=== PATIENT | female | born 1950 | race Caucasian/White ===

== ENCOUNTER 2016-06-08 17:26 | Emergency (ER) | payer OTHER ==
[~2016-06-08] VITALS: Ht 162.6 cm; Wt 74.8 kg
[~2016-06-08 17:26] MED LIST: ACTOS; METFORMIN; [UNRECOGNIZED DRUG - OTHER]
[2016-06-08 19:34] VITALS: BP 124/87
== END 2016-06-08 20:04 | disposition home or self-care (01) ==
LOC: ER 17:29
DX: T83.018A Breakdown (mechanical) of other urinary catheter, initial encounter (principal); I10 Essential (primary) hypertension; E11.9 Type 2 diabetes mellitus without complications; Y93.89 Activity, other specified; Y99.9 Unspecified external cause status; Y92.89 Other specified places as the place of occurrence of the external cause; Z88.1 Allergy status to other antibiotic agents; Z79.899 Other long term (current) drug therapy

== ENCOUNTER → 2016-06-11 | Emergency (ER) | payer OTHER ==
[~2016-06-11] MED LIST changes: +BACL10TA; +HYDR50CA2; +IBU800T; +LISI-646; +LITH300C3; +METF-316; +OXYB5TAB61; +PIOG15TA46; +SIMV-8; +SITA100T7; +[UNRECOGNIZED DRUG - CODE]
== END | disposition left against medical advice (07) ==
LOC: ER 03:35
DX: Z46.6 Encounter for fitting and adjustment of urinary device (principal); Z53.21 Procedure and treatment not carried out due to patient leaving prior to being seen by health care provider

== ENCOUNTER 2016-06-14 08:27 | Emergency (ER) | payer OTHER ==
[~2016-06-14] VITALS: Ht 162.6 cm; Wt 77.1 kg
[~2016-06-14 08:27] MED LIST changes: -BACL10TA; -HYDR50CA2; -IBU800T; -LISI-646; -LITH300C3; -METF-316; -OXYB5TAB61; -PIOG15TA46; -SIMV-8; -SITA100T7; -[UNRECOGNIZED DRUG - CODE]
[2016-06-14 08:55] VITALS: BP 180/80
== END 2016-06-14 10:40 | disposition home or self-care (01) ==
LOC: ER 08:37
DX: T83.9XXD Unspecified complication of genitourinary prosthetic device, implant and graft, subsequent encounter (principal); Z45.2 Encounter for adjustment and management of vascular access device; E11.9 Type 2 diabetes mellitus without complications; I10 Essential (primary) hypertension; Z79.84 Long term (current) use of oral hypoglycemic drugs; Z88.1 Allergy status to other antibiotic agents; Z88.2 Allergy status to sulfonamides
CPT/HCPCS: 51702

== ENCOUNTER → 2016-06-16 | Outpatient (CLI) | payer OTHER | END | disposition home or self-care (01) | LOC: LAB 13:20 | PROVIDERS: ATTEND Internal Medicine | DX: N39.0 Urinary tract infection, site not specified (principal) | CPT/HCPCS: 87086 ==

== ENCOUNTER 2016-06-23 06:00 | Emergency (ER) | payer OTHER ==
[~2016-06-23] VITALS: Ht 162.6 cm; Wt 77.1 kg
[2016-06-23 06:25] VITALS: BP 157/80
[2016-06-23 06:50] LABS: Basophils # (auto) 0 uL; Basophils % (auto) 0.4 % (0.0-2.0); Eosinophils # (auto) 0.2 uL; Eosinophils % (auto) 3.3 % (0.0-7.0); Hemoglobin 12.9 g/dL (12.2-16.2); Lymphocytes # (auto) 1.7 uL; Lymphocytes % (auto) 32.9 % (10.0-50.0); Mean Corpuscular Hemoglobin 30.4 pg (28.0-32.0); Mean Corpuscular Hgb Conc. 32.3 g/dL (32.0-36.0); Mean Corpuscular Volume 94.2 fL (80.0-100.0); Mean Platelet Volume 7.6 fL (7.4-10.4); Monocytes # (auto) 0.4 uL; Monocytes % (auto) 7.2 % (0.0-12.0); Neutrophils # (auto) 2.8 uL; Neutrophils % (auto) 56.2 % (37.0-80.0); Platelet Count (auto) 235 10^3/uL (140-450); Red Cell Distribution Width 12.5 % (11.6-16.0)
[2016-06-23 07:10] LABS: Albumin 3.5 g/dL (3.4-5.0); Anion Gap 11 (5-15); Aspartate Aminotransferase 17 U/L (15-37); Blood Urea Nitrogen 8 mg/dL (7-18); Calcium 8.9 mg/dL (8.5-10.1); Carbon Dioxide 22 mmol/L (21-32); Chloride 109 mmol/L (98-107); GFR African American 92 mL/min; GFR Non-African American 76 mL/min; Glucose 223 mg/dL (74-106); Potassium 3.9 mmol/L (3.5-5.1); Salicylate < 1.7 mg/dL (2.8-20.0); Sodium 142 mmol/L (136-145)
[2016-06-23 07:21] LABS: Acetaminophen < 2.0 ug/mL (10-30); Alkaline Phosphatase 63 U/L (45-117); Bilirubin, Total 0.7 mg/dL (0.2-1.0); Total Protein 6.5 g/dL (6.4-8.2)
[2016-06-23 07:52] LABS: Urine Bilirubin Negative (Negative); Urine Blood Negative /uL (Negative); Urine Color Yellow (Yellow); Urine Glucose TRACE mg/dL (Normal); Urine Ketone Negative (Negative); Urine Nitrite Negative (Negative); Urine RBC <1 /hpf (0 - 4); Urine Urobilinogen Normal (Negative)
[2016-06-23] MEDS ORDERED: SODIUM CHLORIDE 0.9% 1,000 ML IV ONE (08:15)
[2016-06-23] MEDS ORDERED: HYDROcodone-ACET 5/325MG TAB PO ONE (08:15)
== END 2016-06-23 09:14 | disposition home or self-care (01) ==
LOC: ER 06:04
DX: T39.391A Poisoning by other nonsteroidal anti-inflammatory drugs [NSAID], accidental (unintentional), initial encounter (principal); E11.9 Type 2 diabetes mellitus without complications; I10 Essential (primary) hypertension; R33.9 Retention of urine, unspecified; Z79.84 Long term (current) use of oral hypoglycemic drugs; Z88.1 Allergy status to other antibiotic agents
CPT/HCPCS: 36415; 80053; 80329; 81001; 85025; 85049; 93005; 94761; 99285; G0434; J7030

== ENCOUNTER → 2016-07-03 | Outpatient (CLI) | payer OTHER | END | disposition home or self-care (01) | LOC: LAB 16:11 | PROVIDERS: ATTEND Urology | DX: N39.9 Disorder of urinary system, unspecified (principal); I10 Essential (primary) hypertension; E11.9 Type 2 diabetes mellitus without complications | CPT/HCPCS: 87086 ==

== ENCOUNTER 2016-10-03 11:22 | Emergency (ER) | payer OTHER ==
[~2016-10-03] VITALS: Ht 152.4 cm; Wt 74.8 kg
[~2016-10-03 11:22] MED LIST changes: -ACTOS; +BACL10TA; +HYDR50CA2; +IBU800T; +LISI-646; +LITH300C3; +METF-316; -METFORMIN; +OXYB5TAB61; +PIOG15TA46; +SIMV-8; +SITA100T7; +[UNRECOGNIZED DRUG - CODE]; -[UNRECOGNIZED DRUG - OTHER]
[2016-10-03 11:35] VITALS: BP 173/100
[2016-10-03] MEDS ORDERED: SODIUM CHLORIDE 0.9% 1,000 ML IV ONE (11:35)
[2016-10-03] MEDS ORDERED: ONDANSETRON HCL 4 MG/2 ML VIAL IV ONE (11:45)
[2016-10-03 12:21] LABS: Basophils # (auto) 0.1 uL; Basophils % (auto) 0.7 % (0.0-2.0); Eosinophils # (auto) 0.1 uL; Eosinophils % (auto) 1.3 % (0.0-7.0); Hematocrit 42.1 % (36.0-46.0); Hemoglobin 13.9 g/dL (12.2-16.2); Lymphocytes # (auto) 1.4 uL; Lymphocytes % (auto) 18.2 % (10.0-50.0); Mean Corpuscular Hemoglobin 30.6 pg (28.0-32.0); Mean Corpuscular Volume 92.8 fL (80.0-100.0); Monocytes # (auto) 0.5 uL; Monocytes % (auto) 6.2 % (0.0-12.0); Neutrophils # (auto) 5.6 uL; Neutrophils % (auto) 73.6 % (37.0-80.0); Platelet Count (auto) 343 10^3/uL (140-450); Red Cell Distribution Width 13.4 % (11.6-16.0); White Blood Cell 7.6 10^3/uL (4.4-10.8)
[2016-10-03 12:33] LABS: Albumin 4.1 g/dL (3.4-5.0); Alkaline Phosphatase 134 U/L (45-117); Amylase 119 U/L (25-115); Anion Gap 8 (5-15); Aspartate Aminotransferase 19 U/L (15-37); BUN/Creatinine Ratio 11.8; Blood Urea Nitrogen 16 mg/dL (7-18); Calcium 10.7 mg/dL (8.5-10.1); Carbon Dioxide 25 mmol/L (21-32); Chloride 100 mmol/L (98-107); GFR African American 50 mL/min; GFR Non-African American 41 mL/min; Glucose 214 mg/dL (74-106); Potassium 4.7 mmol/L (3.5-5.1); Sodium 133 mmol/L (136-145); Total Protein 7.7 g/dL (6.4-8.2)
== END 2016-10-03 18:48 | disposition home or self-care (01) ==
LOC: EDUNIT# 11:22 → EDBD 11:22 → ER 11:22
CPT/HCPCS: 36415; 71010; 80053; 82150; 83690; 84484; 85025

== ENCOUNTER 2016-11-10 01:53 | Emergency (ER) | payer OTHER ==
[~2016-11-10] VITALS: Ht 165.1 cm; Wt 68.0 kg
[~2016-11-10 01:53] MED LIST changes: -IBU800T; +IBUP800T24; -METF-316; +METF-372
[2016-11-10 02:12] VITALS: BP 136/66
== END 2016-11-10 04:54 | disposition left against medical advice (07) ==
LOC: ER 01:53
DX: Z46.6 Encounter for fitting and adjustment of urinary device (principal); Z53.21 Procedure and treatment not carried out due to patient leaving prior to being seen by health care provider

== ENCOUNTER 2024-08-31 14:12 | Emergency (ER) | payer OTHER ==
[~2024-08-31] VITALS: Ht 162.6 cm; Wt 65.0 kg
[~2024-08-31 14:12] MED LIST changes: +ACET500T48; +IBUP-1455; -IBUP800T24; -LISI-646; +LISI20TA56; +OXYB5TAB14; -OXYB5TAB61; -PIOG15TA46; +PIOG1TAB36; -SIMV-8; +SIMV20TA20; -[UNRECOGNIZED DRUG - CODE]
--- NOTE | 2024-08-31 14:27 | ED.PDOC ---
History of Present Illness HPI Comments 73-year-old female brought by ambulance from crisis Center because she was behaving abnormal. She does have a history of behavior problems diabetes dementia. Unable to get a history from the patient. She is confused. Information was given by paramedics. She did drive to crisis Center to get he lp. Time Seen by MD: 14:20 Primary Care Provider: BRE Reviewed Notes: Nurses Notes, Medications, Allergies Allergies: Coded Allergies: Sulfa Antibiotics (Verified Allergy, Unknown, 06/02/16) Home Meds Reported Medications [place] Carbonate ([place] Carbonate) 300 Mg Cap, #270 07/18/16 Sitagliptin Phosphate (Januvia) 100 Mg Tab, #30 07/18/16 Oxybutynin Chloride (Oxybutynin Chloride) 5 Mg Tab, #90 07/18/16 Simvastatin (Simvastatin) 20 Mg Tab, #90 07/18/16 Metformin Hydrochloride (Metformin Hcl) 1,000 Mg Tab, #180 07/18/16 Pioglitazone Hydrochloride (PIOGLITAZONE HCL) 15 Mg Tab, #90 07/18/16 Hydroxyzine Pamoate (Hydroxyzine Pamoate) 50 Mg Cap, #30 07/18/16 Baclofen (Baclofen) 10 Mg Tab, #30 07/18/16 Acetaminophen (Mapap) 500 Mg Tab, #120 07/18/16 Lisinopril (Lisinopril) 20 Mg Tab, #30 07/18/16 Ibuprofen Micronized (Ibuprofen) 800 Mg Tab, #20 07/18/16 Information Source: Emergency Med Personnel Mode of Arrival: EMS Severity: Moderate Timing: Hours Duration: Since onset Past Medical History PAST MEDICAL HISTORY: Anxiety, DM, HTN Surgical History: Denies all surgeries LINER ROLL CHANGER History: No Pertinent LINER ROLL CHANGER History Family History Family History: No family hx of Cancer, No family hx of DM, No family hx of Heart mila, No family hx of HTN, No family hx of Stroke Social History Smoker: Non-Smoker Alcohol: Denies ETOH Use Drugs: Denies Drug Use Lives In: Home Unable to Obtain due to: Altered Mental Status Physical Exam General Appearance: Moderate Distress HEENT: Normal ENT Inspection, Pharynx Normal, TMs Normal Neck: Full Range of Motion, Non-Tender, Normal, Normal Inspection Respiratory: Chest Non-Tender, Lungs Clear, No Accessory Muscle Use, No Respiratory Distress, Normal Breath Sounds Cardiovascular: No Edema, No JVD, No Murmur, No Gallop, Normal Peripheral Pulses, Regular Rate/Rhythm Breast Exam: Deferred Gastrointestinal: No Organomegaly, Non Tender, No Pulsatile Mass, Normal Bowel Sounds, Soft Genitalia: Deferred Pelvic: Deferred Rectal: Deferred Extremities: No calf tenderness, Normal capillary refill, Normal inspection, Normal range of motion, Non-tender, No pedal edema Musculoskeletal : Apperance: Normal Neurologic: Disoriented Cerebellar Function: NOT DONE Reflexes: NOT DONE Skin: Normal Color Peripheral Pulses: 3+ Radial (R), 3+ Radial (L) Lymphatic: No Adenopathy Was a procedure done? Was a procedure done?: No Differential Dx Considerations may include: Altered Electrolyte imbalance X-Ray, Labs, Meds, VS Vital Signs Date Time Temp Pulse Resp B/P (MAP) Pulse Ox O2 Delivery O2 Flow Rate FiO2 08/31/24 14:25 77 08/31/24 14:12 99.2 80 18 155/87 (109) 98 99.2 Lab Test 08/31/24 15:27 08/31/24 14:55 Range/Units Urine Color Pending Urine Clarity Pending Urine pH Pending Urine Specific [place] Pending Urine Protein Pending Urine Ketones Pending Urine Blood Pending Urine Nitrite Pending Urine Bilirubin Pending Urine Urobilinogen Pending Urine Leukocyte Esterase Pending Urine RBC Pending Urine Microscopic WBC Pending Urine Squamous Epithelial Cells Pending Urine Bacteria Pending Urine Glucose Pending White Blood Count 5.6 4.4-10.8 10^3/uL Red Blood Count 4.06 4.0-5.20 10^6/uL Hemoglobin 12.0 L 12.2-16.2 g/dL Hematocrit 37.8 36.0-46.0 % Mean Corpuscular Volume 93.1 80.0-100.0 fL Mean Corpuscular Hemoglobin 29.5 28.0-32.0 pg Mean Corpuscular Hemoglobin Concent 31.7 L 32.0-36.0 g/dL Red Cell Distribution Width 14.4 H 11.8-14.3 % Platelet Count 252 140-450 10^3/uL Mean Platelet Volume 7.0 6.9-10.8 fL Neutrophils (%) (Auto) 58.6 37.0-80.0 % Lymphocytes (%) (Auto) 28.6 10.0-50.0 % Monocytes (%) (Auto) 10.6 0.0-12.0 % Eosinophils (%) (Auto) 1.2 0.0-7.0 % Basophils (%) (Auto) 1.0 0.0-2.0 % Neutrophils # (Auto) 3.3 1.6-8.6 10 ^3/uL Lymphocytes # (Auto) 1.6 0.4-5.4 10 ^3/uL Monocytes # (Auto) 0.6 0-1.3 10 ^3/uL Eosinophils # (Auto) 0.1 0-0.8 10 ^3/uL Basophils # (Auto) 0.1 0-0.2 10 ^3/uL Nucleated Red Blood Cells 0.1 % Sodium Level 138 136-145 mmol/L Potassium Level 4.3 3.5-5.1 mmol/L Chloride Level 103 98-107 mmol/L Carbon Dioxide Level 25 20-31 mmol/L Anion Gap 10 5-15 Blood Urea Nitrogen 27 H 9-23 mg/dL Creatinine 1.08 H 0.550-1.02 mg/dL Glomerular Filtration Rate Calc 54 >90 mL/min BUN/Creatinine Ratio 25.0 H 10.0-20.0 Serum Glucose 125 H 74-106 mg/dL Calcium Level 11.0 H 8.7-10.4 mg/dL Troponin I High Sensitivity 13 </=34 ng/L Patient disoriented. Has behavioral disturbances. Possible dementia. Vitals stable. No sign of any injury. Possible sepsis from urine. Urinary tract infection causing worsening of her altered mental status. Reviewed her history. Continue cardiac monitoring. EKG reviewed does not show any acute changes. Time of 1ST Reevaluation: 14:52 Reevaluation 1ST: Unchanged Patient Education/Counseling: Diagnosis, Treatment, Prognosis Family Education/Counseling: No Family Present Departure 1 Departure Time of Disposition: 14:53 Impression: Primary Impression: Metabolic encephalopathy Additional Impression: HTN (hypertension) Qualified Codes: I10 - Essential (primary) hypertension Disposition: ADMITTED INPATIENT Admit to: Med Surg Condition: Guarded Critical Care Note Critical Care Time?: No Stability Stability form required: No Heart Score Heart Score: Heart Score Response (Comments) Value History Slightly Suspicious 0 EKG Normal 0 Age >65 2 Risk Factors >3 or Hx ASHD 2 Troponin Normal limit 0 Total 4 TITA PARKER MD Aug 31, 2024 14:27
--- NOTE | 2024-08-31 14:57 | DVH ---
EXAM: CT HEAD WITHOUT CONTRAST HISTORY: altered COMPARISON: None TECHNIQUE: Axial images were obtained and reformatted in coronal and sagittal planes. All CT scans at this medical facility are performed using dose modulation techniques as appropriate t o a performed exam including the following: Automated exposure control was utilized; adjustment of th e MA and/or KV according to patient size; and use of iterative reconstruction technique. CT Dose: CTDI volume is 54.16 mGy. Dose-length product is 959.05 mGy*cm FINDINGS: Supratentorial Region: No evidence for large acute territorial ischemia. No intracranial hemorrhage is noted. Posterior Fossa: No acute abnormality. Brainstem: Unremarkable. Sellar/Suprasellar Region: Unremarkable. Ventricles, Cisterns, Sulci: Age-appropriate. Orbits: Unremarkable. Paranasal Sinuses: Unremarkable. Mastoid Air Cells: Unremarkable. Vasculature: Unremarkable. Bones/Soft Tissues: No acute abnormality. Other: None. IMPRESSION: 1. No acute intracranial process.
[2024-08-31 15:14] LABS: Basophils # (auto) 0.1 10 ^3/uL (0-0.2); Eosinophils # (auto) 0.1 10 ^3/uL (0-0.8); Eosinophils % (auto) 1.2 % (0.0-7.0); Hematocrit 37.8 % (36.0-46.0); Lymphocytes # (auto) 1.6 10 ^3/uL (0.4-5.4); Lymphocytes % (auto) 28.6 % (10.0-50.0); Mean Corpuscular Hemoglobin 29.5 pg (28.0-32.0); Mean Corpuscular Hgb Conc. 31.7 g/dL (32.0-36.0); Mean Corpuscular Volume 93.1 fL (80.0-100.0); Monocytes # (auto) 0.6 10 ^3/uL (0-1.3); Monocytes % (auto) 10.6 % (0.0-12.0); Neutrophils # (auto) 3.3 10 ^3/uL (1.6-8.6); Neutrophils % (auto) 58.6 % (37.0-80.0); Nucleated Red Blood Cells % 0.1 %; Platelet Count (auto) 252 10^3/uL (140-450); Red Blood Cells 4.06 10^6/uL (4.0-5.20); Red Cell Distribution Width 14.4 % (11.8-14.3); White Blood Cell 5.6 10^3/uL (4.4-10.8)
[2024-08-31 15:24] LABS: Chloride 103 mmol/L (98-107); Potassium 4.3 mmol/L (3.5-5.1); Sodium 138 mmol/L (136-145)
[2024-08-31 15:25] LABS: Anion Gap 10 (5-15); Carbon Dioxide 25 mmol/L (20-31)
[2024-08-31 15:38] LABS: Blood Urea Nitrogen 27 mg/dL (9-23); Glucose 125 mg/dL (74-106)
[2024-08-31 15:38] LABS: Urine Bacteria None Seen /hpf (None Seen)
[2024-08-31 15:45] LABS: Urine Blood Negative /uL (Negative); Urine Clarity Clear (Clear); Urine Color Colorless (Yellow); Urine Protein, UAD Negative (Negative); Urine Specific Gravity 1.005 (1.001-1.035); Urine Squamous Epithelial Cell FEW /hpf (<5); Urine Urobilinogen Normal (Negative); Urine WBC 1 /HPF (0-5)
[2024-08-31 19:47] LABS: Acetaminophen < 2.0 UG/ML (10.0-20.0); Salicylate < 3.0 mg/dL (-30)
[2024-08-31 20:05] VITALS: PULSE 79; RESP 13; O2SAT 100
[2024-08-31 20:10] LABS: Amphetamine Screen, Urine Neg (NEGATIVE); Barbiturate Scree,Urine Neg (NEGATIVE); Benzodiazephine Screen, Urine Neg (NEGATIVE); Cannabinoid Screen, Urine Neg (NEGATIVE); Cocaine Screen, Urine Neg (NEGATIVE); Opiate Scree,Urine Neg (NEGATIVE); Phencyclidine Screen, Urine Neg (NEGATIVE)
--- NOTE | 2024-08-31 20:43 | DVH ---
CHEST RADIOGRAPH Indication: cough Technique: Single frontal view of the chest was obtained COMPARISON: None FINDINGS: Lines and Tubes: None Lungs: Clear Pleura: No effusion. No pneumothorax. Cardiomediastinal contours: Unremarkable Bones: Unremarkable IMPRESSION: No acute abnormality demonstrated.
[2024-08-31 23:03] VITALS: BP 123/75; PULSE 74; RESP 15; TEMP 97.8; O2SAT 97
--- NOTE | 2024-09-01 09:10 | ECG ---
[facility] Test Date: 2024-08-31 Test Time: 14:25:39 Pat Name: SAM MCNULTY Department: ED Room: Gender: F Client Reporting Associate: tyrone : [id number] Requested By: TITA PARKER Order Number: [id number] Reading MD: Ever Jacobsen Measurements Intervals [place] Rate: 77 P: 31 [place]: 205 QRS: -52 QRSD: 107 T: 88 QT: 393 QTc: 445 Interpretive Statements Sinus rhythm Left anterior fascicular block Probable left ventricular hypertrophy Anterior Q waves, possibly due to LVH Electronically Signed On 09-01-2024 14:11:11 PDT by Ever Jacobsen Please click the below link to view image of tracing.
== END 2024-08-31 23:49 | disposition short-term general hospital (02) ==
LOC: EDUNIT# 14:12 → EDBD 14:12 → ER 14:23
DX: G93.41 Metabolic encephalopathy (principal); I10 Essential (primary) hypertension; F41.9 Anxiety disorder, unspecified; E11.9 Type 2 diabetes mellitus without complications; F03.94 Unspecified dementia, unspecified severity, with anxiety; Z88.2 Allergy status to sulfonamides; Z79.899 Other long term (current) drug therapy
CPT/HCPCS: 36415; 70450; 71045; 80048; 80307; 80320; 80329; 81001; 82140; 82947; 84484; 85025; 93005

== ENCOUNTER 2025-05-10 08:48 | Inpatient (IN) | payer OTHER ==
[~2025-05-10] VITALS: Ht 157.5 cm; Wt 59.3 kg
[2025-05-10 09:56] VITALS: PULSE 67; RESP 13; O2SAT 99
--- NOTE | 2025-05-10 10:00 | ED.PDOC ---
Psychiatric HPI Comments 74-year-old female with PMHx of type 2 diabetes mellitus, previous MA has come to the ER via EMS for nonspecific complaints and paranoia. According to EMS, patient called them complaining of presyncope, history of frequent falls and slight chest pain. EMS reports that patient was pacing outside her house when they arrived, had locked the doors of her home, made no sense when she spoke, seemed paranoid (unable to know if this is her baseline) speaking mostly about babies being killed and stolen. Blood sugar level in the ambulance was 206, heart rate 80s, BP 141/102 mmHg and EKG showed normal sinus rhythm. Patient on initial assessment, is A&O x2, has rapid speech, mostly talks about babies being stolen, killed, 500 dollars being given, regarding some female trying to steal her home and patient pulled out her master's degree certification that she had stuffed in her socks, which she states she carries around as people are trying to steal it. On inquiry about where her chest pain is located, patient points to her abdomen and states 'there might be pain there because I have 6 belly buttons.' Patient is severely paranoid and requires tele psych consultation. Chief Complaint: General Weakness Time Seen by MD: 09:15 Primary Care Provider: BRE Information Source: Emergency Med Personnel Mode of Arrival: EMS Severity: Unable to Care for Self, Unable to Control Self Severity of Mental Status: Severe Presents with: Other (Paranoia) Past Medical History PAST MEDICAL HISTORY: Anxiety, DM, HTN Surgical History: Denies all surgeries SHELLFISH GROWER History: No Pertinent SHELLFISH GROWER History Family History Family History: No family hx of Cancer, No family hx of DM, No family hx of Heart mila, No family hx of HTN, No family hx of Stroke Social History Smoker: Non-Smoker Alcohol: Denies ETOH Use Drugs: Denies Drug Use Lives In: Home Unable to Obtain due to: Altered Mental Status, Other (Patient has paranoia, does not make sense in what she says) Physical Exam General Appearance: Normal HEENT: Other (No pallor or icterus) Neck: Non-Tender, Normal, Normal Inspection Respiratory: No Accessory Muscle Use, No Respiratory Distress, Normal Breath Sounds Cardiovascular: No Edema, No JVD, No Murmur Breast Exam: Deferred Gastrointestinal: Non Tender, Normal Bowel Sounds Genitalia: Deferred Pelvic: Deferred Rectal: Deferred Extremities: No calf tenderness, Non-tender, No pedal edema Neurologic: Other (Patient has rapid speech, no sensory motor deficits, does not make sense in what she says) Cerebellar Function: Unable to Test Reflexes: Normal Skin: Normal Color Lymphatic: Other (No cervical lymphadenopathy) Was a procedure done? Was a procedure done?: No Psych Differential Dx Psych. Differential Dx: Bipolar Disorder, Schizoprenia X-Ray, Labs, Meds, VS Vital Signs Date Time Temp Pulse Resp B/P (MAP) Pulse Ox O2 Delivery O2 Flow Rate FiO2 05/10/25 13:01 113 15 146/84 (104) 93 05/10/25 11:35 151/131 05/10/25 11:00 16 98 Room Air* 0 21 05/10/25 10:09 70 18 196/126 (149) 100 05/10/25 09:56 67 13 99 Room Air* 0 21 05/10/25 09:05 70 05/10/25 08:53 97.8 63 18 143/104 98 97.8 Lab Test 05/10/25 11:23 05/10/25 09:55 05/10/25 09:26 Range/Units POC Glucose 86 70-106 mg/dl Urine Color Light-yellow Yellow Urine Clarity Clear Clear Urine pH 5.5 5.0-9.0 Urine Specific [place] 1.017 1.001-1.035 Urine Protein Negative Negative Urine Ketones Negative Negative Urine Blood Negative Negative /uL Urine Nitrite Negative Negative Urine Bilirubin Negative Negative Urine Urobilinogen Normal Negative mg/dL Urine Leukocyte Esterase Trace Negative /uL Urine RBC 1 0 - 4 /hpf Urine Microscopic WBC 2 0-5 /HPF Urine Squamous Epithelial Cells Few <5 /hpf Urine Bacteria None seen None Seen /hpf Urine Osmolality Pending Urine Creatinine Pending Urine Protein/Creatinine Ratio Pending Urine Sodium Pending Urine Potassium Pending Urine Glucose Normal Normal mg/dL Urine Total Protein Pending Urine Opiates Screen Neg NEGATIVE Urine Fentanyl Screen Neg NEGATIVE Urine Barbiturates Screen Neg NEGATIVE Urine Phencyclidine Screen Neg NEGATIVE Urine Amphetamines Screen Neg NEGATIVE Urine Benzodiazepines Screen Neg NEGATIVE Urine Cocaine Screen Neg NEGATIVE Urine Cannabinoids Screen Neg NEGATIVE White Blood Count 6.2 4.4-10.8 10^3/uL Red Blood Count 4.04 4.0-5.20 10^6/uL Hemoglobin 12.7 12.2-16.2 g/dL Hematocrit 38.6 36.0-46.0 % Mean Corpuscular Volume 95.6 80.0-100.0 fL Mean Corpuscular Hemoglobin 31.5 28.0-32.0 pg Mean Corpuscular Hemoglobin Concent 32.9 32.0-36.0 g/dL Red Cell Distribution Width 13.1 11.8-14.3 % Platelet Count 241 140-450 10^3/uL Mean Platelet Volume 7.3 6.9-10.8 fL Neutrophils (%) (Auto) 78.6 37.0-80.0 % Lymphocytes (%) (Auto) 12.2 10.0-50.0 % Monocytes (%) (Auto) 7.4 0.0-12.0 % Eosinophils (%) (Auto) 1.2 0.0-7.0 % Basophils (%) (Auto) 0.6 0.0-2.0 % Neutrophils # (Auto) 4.8 1.6-8.6 10 ^3/uL Lymphocytes # (Auto) 0.8 0.4-5.4 10 ^3/uL Monocytes # (Auto) 0.5 0-1.3 10 ^3/uL Eosinophils # (Auto) 0.1 0-0.8 10 ^3/uL Basophils # (Auto) 0 0-0.2 10 ^3/uL Nucleated Red Blood Cells 0.0 % Sodium Level 140 136-145 mmol/L Potassium Level 5.5 H 3.5-5.1 mmol/L Chloride Level 105 98-107 mmol/L Carbon Dioxide Level 24 20-31 mmol/L Anion Gap 11 5-15 Blood Urea Nitrogen 21 9-23 mg/dL Creatinine 0.88 0.550-1.02 mg/dL Glomerular Filtration Rate Calc 68 >90 mL/min BUN/Creatinine Ratio 23.9 H 10.0-20.0 Serum Glucose 145 H 74-106 mg/dL Calcium Level 10.5 H 8.7-10.4 mg/dL Creatine Kinase 199 H 34-145 U/L Current Medications Medications (Trade) Dose Ordered Sig/Heena Route Start Time Stop Time Status Last Admin Albuterol (Ventolin Medneb) 20 mg ONCE ONCE NEB 05/10/25 10:30 05/10/25 10:32 DC 05/10/25 11:07 Sodium Bicarbonate 50 ml ONCE ONCE IV 05/10/25 10:30 05/10/25 10:33 DC 05/10/25 11:35 Furosemide (Lasix Injection) 20 mg ONCE ONCE IV 05/10/25 10:30 05/10/25 10:33 DC 05/10/25 11:35 Zirconium Oxide (Lokelma) 10 gm ONCE ONCE PO 05/10/25 10:30 05/10/25 10:32 DC 05/10/25 11:35 Patient slightly confused. Chronic condition. Blood sugar elevated. Calcium elevated. Potassium elevated. Kidney function within normal limits. WBC within normal limits. Hemoglobin within normal limits. Hyperkalemia treatment. Continue monitoring. Patient is unstable for transfer. [facility] approved inpatient admission [id number]. Time of 1ST Reevaluation: 10:29 Reevaluation 1ST: Unchanged Consultation: Psychiatry Patient Education/Counseling: Diagnosis, Treatment Family Education/Counseling: No Family Present Departure 1 Departure Time of Disposition: 10:29 Impression: Primary Impression: Metabolic encephalopathy Additional Impression: Hyperkalemia Disposition: ADMITTED INPATIENT Admit to: Med Surg Condition: Guarded Critical Care Note Critical Care Time?: Yes (90 min-critical care time only) Stability Stability form required: No Heart Score Heart Score: Heart Score Response (Comments) Value History N/A 0 EKG N/A 0 Age N/A 0 Risk Factors N/A 0 Troponin N/A 0 Total 0 RUEL WILKERSON May 10, 2025 10:00 TITA PARKER MD May 10, 2025 10:30
[2025-05-10 10:02] LABS: Hematocrit 38.6 % (36.0-46.0); Hemoglobin 12.7 g/dL (12.2-16.2); Mean Corpuscular Hemoglobin 31.5 pg (28.0-32.0); Mean Corpuscular Volume 95.6 fL (80.0-100.0); Nucleated Red Blood Cells % 0.0 %
[2025-05-10 10:14] LABS: Anion Gap 11 (5-15); Carbon Dioxide 24 mmol/L (20-31); Chloride 105 mmol/L (98-107); Potassium 5.5 mmol/L (3.5-5.1); Sodium 140 mmol/L (136-145)
[2025-05-10 10:16] LABS: Calcium 10.5 mg/dL (8.7-10.4)
[2025-05-10 10:20] LABS: BUN/Creatinine Ratio 23.9 (10.0-20.0); Blood Urea Nitrogen 21 mg/dL (9-23)
[2025-05-10 10:22] LABS: Glucose 145 mg/dL (74-106)
[2025-05-10 10:23] LABS: Urine Protein, UAD Negative (Negative)
[2025-05-10] MEDS ORDERED: CALCIUM GLUC 1,000mg/50ml-NS 50 ML IV ONE (10:30)
[2025-05-10 10:32] LABS: Amphetamine Screen, Urine Neg (NEGATIVE); Barbiturate Scree,Urine Neg (NEGATIVE); Benzodiazephine Screen, Urine Neg (NEGATIVE); Cannabinoid Screen, Urine Neg (NEGATIVE); Cocaine Screen, Urine Neg (NEGATIVE); Opiate Scree,Urine Neg (NEGATIVE); Phencyclidine Screen, Urine Neg (NEGATIVE)
[2025-05-10] MEDS: ALBUTEROL SULF 2.5 MG/0.5ML(0.5%) NEB SOLN NEB ONE (11:07)
--- NOTE | 2025-05-10 11:19 | ECG ---
[facility] Test Date: 2025-05-10 Test Time: 09:01:50 Pat Name: SAM MCNULTY Department: ED Room: 0221T Gender: F Vegetable Picker: LAILA : [id number] Requested By: TITA PARKER Order Number: [id number] Reading MD: Ever Jacobsen Measurements Intervals [place] Rate: 70 P: 0 AL: 0 QRS: -66 QRSD: 95 T: 70 QT: 397 QTc: 429 Interpretive Statements Atrial fibrillation Left anterior fascicular block Anterior infarct, old Borderline ST elevation, lateral leads Electronically Signed On 05-11-2025 17:04:27 PST by Ever Jacobsen Please click the below link to view image of tracing.
[2025-05-10] MEDS: SODIUM ZIRCONIUM CYCL 10 GM PAK PO ONE (11:35)
[2025-05-10] MEDS: SODIUM BICARB 8.4% 50Meq/50ml SYR INJ IV ONE (11:35)
[2025-05-10] MEDS: FUROSEMIDE 20 MG/2 ML VIAL IV ONE (11:35)
[2025-05-10] MEDS: DEXTROSE (50%) 50ML SYRG IV ONE (11:54)
[2025-05-10] MEDS: InsuLIN REG 1unit/0.01ml Soln (100units/ml) IV ONE (11:54)
--- NOTE | 2025-05-10 13:56 | DVHHP2 ---
History of Present Illness Reason for Visit: Metabolic encephalopathy History of Present Illness The patient is a 74 years old female with past medical history of anxiety, diabetes mellitus, hypertension, and hyperlipidemia who presented to [facility] ED for evaluation of altered mental status. As reported by EMS, patient called complaining of presyncopal episode, frequent falls, and slight chest pain. When EMS arrived on the scene, patient was pacing outside her house, locked the doors of her home with poor insight, thought process, hopelessness, paranoid, severe anxiety, and speaking mostly about babies being killed and stolen. Patient has rapid speech, talking about some female trying to steal her home, pulled out her master's degrees that stuffed in her socks, states she carries around as people are trying to steal it. Patient was stabilized by EMS EN route to our facility ED. Patient was seen and evaluated in the ED, laboratory data shows WBC 6.2, platelets 241, sodium 140, potassium 5.5, BUN 21, creatinine 0.88, GFR 68, glucose 145, calcium 10.5, blood pressure 196/126 trending down to 146/84, heart rate 70, temperature 97.8 F, O2 saturation 98% on room air. Patient was given hyperkalemia protocol, please see medication orders section in the computer. On my assessment, sitter at bedside, patient denied chest pain, no headache, dizziness, diaphoresis, shortness a breath, no diarrhea, nausea, vomiting, fever, no chills. Patient was admitted for further evaluation and medical management. Past Medical History Anxiety, DM, HTN, HLD Past Surgical History Denies all surgeries Family History Reviewed, noncontributory to the management of this case. Past Social History The patient lives at home, denies smoking, alcohol or illicit drugs abuse. Review of Systems Constitutional: Yes: Weakness; No: Fever, Chills, Sweats, Malaise, Other Eyes: No: Pain, Vision change, Conjunctivae inflammation, Eyelid inflammation, Other, Redness ENT: No: Ear pain, Ear discharge, Nose pain, Nose discharge, Nose congestion, Mouth pain, Mouth swelling, Throat pain, Throat swelling, Other Respiratory: No: Cough, Dry, Shortness of breath, SOB with excertion, Wheezing, Hemoptysis, Pleuritic Pain, Sputum, Wheezing, Other Cardiovascular: No: Chest Pain, Palpitations, Orthopnea, Paroxysmal Noc. Dyspnea, Edema, Lt Headedness, Other Gastrointestinal: No: Nausea, Vomiting, Abdominal Pain, Diarrhea, Constipation, Melena, Hematochezia, Other Genitourinary: No Dysuria, No Frequency, No Incontinence, No Hematuria, No Retention, No Other Musculoskeletal: No: other, neck pain, shoulder pain, arm pain, back pain, hand pain, leg pain, foot pain Skin: No: Rash, Lesions, Jaundice, Bruising, Other Neurological: Confusion, Other (Altered mental status); No: Weakness, Numbness, Incoordination, Change in speech, Seizures Allergies: Coded Allergies: Sulfa Antibiotics (Verified Allergy, Unknown, 06/02/16) Medications Current Medications Medications Dose Ordered Sig/Heena Route Start Time Stop Time Status Last Admin Dose Admin Amlodipine Besylate 5 mg DAILY PO 05/11/25 10:00 UNV Exam Vital Signs Vital Signs Date Time Temp Pulse Resp B/P (MAP) Pulse Ox O2 Delivery O2 Flow Rate FiO2 05/10/25 13:01 113 15 146/84 (104) 93 05/10/25 11:00 Room Air* 0 21 05/10/25 08:53 97.8 97.8 General Appearance: Alert, Cooperative, No acute distress, Other (Oriented x2) HEENT: Atraumatic, PERRLA, EOMI, Mucous membr. moist/pink Respiratory: Normal air movement Cardiovascular: Regular rate, Normal S1, Normal S2, No murmurs Abdominal: Normal bowel sounds, Soft, No tenderness, No hepatospenomegaly, No masses Extremities: No clubbing, No cyanosis, No edema, Normal pulses, No tenderness/swelling Skin: No rashes, No significant lesion Neuro: Normal tone, Sensation intact, Cranial nerves 3-12 NL, Reflexes 2+, Other (Generalized weakness) Psych/Mental Status: Mental status NL, Mood NL Labs/Xrays Labs Test 05/10/25 11:23 05/10/25 09:55 05/10/25 09:26 Range/Units POC Glucose 86 70-106 mg/dl Urine Color Light-yellow Yellow Urine Clarity Clear Clear Urine pH 5.5 5.0-9.0 Urine Specific [place] 1.017 1.001-1.035 Urine Protein Negative Negative Urine Ketones Negative Negative Urine Blood Negative Negative /uL Urine Nitrite Negative Negative Urine Bilirubin Negative Negative Urine Urobilinogen Normal Negative mg/dL Urine Leukocyte Esterase Trace Negative /uL Urine RBC 1 0 - 4 /hpf Urine Microscopic WBC 2 0-5 /HPF Urine Squamous Epithelial Cells Few <5 /hpf Urine Bacteria None seen None Seen /hpf Urine Glucose Normal Normal mg/dL Urine Opiates Screen Neg NEGATIVE Urine Fentanyl Screen Neg NEGATIVE Urine Barbiturates Screen Neg NEGATIVE Urine Phencyclidine Screen Neg NEGATIVE Urine Amphetamines Screen Neg NEGATIVE Urine Benzodiazepines Screen Neg NEGATIVE Urine Cocaine Screen Neg NEGATIVE Urine Cannabinoids Screen Neg NEGATIVE White Blood Count 6.2 4.4-10.8 10^3/uL Red Blood Count 4.04 4.0-5.20 10^6/uL Hemoglobin 12.7 12.2-16.2 g/dL Hematocrit 38.6 36.0-46.0 % Mean Corpuscular Volume 95.6 80.0-100.0 fL Mean Corpuscular Hemoglobin 31.5 28.0-32.0 pg Mean Corpuscular Hemoglobin Concent 32.9 32.0-36.0 g/dL Red Cell Distribution Width 13.1 11.8-14.3 % Platelet Count 241 140-450 10^3/uL Mean Platelet Volume 7.3 6.9-10.8 fL Neutrophils (%) (Auto) 78.6 37.0-80.0 % Lymphocytes (%) (Auto) 12.2 10.0-50.0 % Monocytes (%) (Auto) 7.4 0.0-12.0 % Eosinophils (%) (Auto) 1.2 0.0-7.0 % Basophils (%) (Auto) 0.6 0.0-2.0 % Neutrophils # (Auto) 4.8 1.6-8.6 10 ^3/uL Lymphocytes # (Auto) 0.8 0.4-5.4 10 ^3/uL Monocytes # (Auto) 0.5 0-1.3 10 ^3/uL Eosinophils # (Auto) 0.1 0-0.8 10 ^3/uL Basophils # (Auto) 0 0-0.2 10 ^3/uL Nucleated Red Blood Cells 0.0 % Sodium Level 140 136-145 mmol/L Potassium Level 5.5 H 3.5-5.1 mmol/L Chloride Level 105 98-107 mmol/L Carbon Dioxide Level 24 20-31 mmol/L Anion Gap 11 5-15 Blood Urea Nitrogen 21 9-23 mg/dL Creatinine 0.88 0.550-1.02 mg/dL Glomerular Filtration Rate Calc 68 >90 mL/min BUN/Creatinine Ratio 23.9 H 10.0-20.0 Serum Glucose 145 H 74-106 mg/dL Calcium Level 10.5 H 8.7-10.4 mg/dL SEPSIS Sepsis Screen Date sepsis recognized/suspect: May 10, 2025 Time Sepsis recognized/suspect: 114 Recent Procedure: No On Antibiotic Therapy: No Respiratory Rate >20: No Heart Rate >90: No Temp<36 C (96.8 F) or >38.3 C: No SBP <90 or MAP <65 mmHG: No New Acute Mental Status Change: No Is the patient on CPAP, BIPAP,: No Physician Orders *Tele Psych Consult (05/10/25 09:12) Potassium (05/10/25 14:23) *[facility] (05/10/25 11:22) Urine Protein (05/10/25 12:16) Urine Potassium (05/10/25 12:16) Urine Creatinine (05/10/25 12:16) Urine Sodium (05/10/25 12:16) Urine Protein/Creatinine Ratio (05/10/25 ) Osmolality Urine (05/10/25 12:16) Consistent Carb(Ccho)Diabetes (05/10/25 Dinner) Amlodipine Tablet (Norvasc Tablet) (05/11/25 10:00) Amlodipine Tablet (Norvasc Tablet) (05/10/25 14:00) Hydralazine Injection (Apresoline Inject (05/10/25 14:00) Atorvastatin (Lipitor) (05/10/25 22:00) Creatine Kinase (05/10/25 13:49) Glucose Blood (Accu-Chek Comfort Curve T (05/10/25 17:00) Bedtime Insulin Scale (05/10/25 22:00) Moderate Insulin Ss (05/10/25 17:00) Dextrose 50% Syringe (05/10/25 14:00) Allergies (05/10/25 13:49) Code Status (05/10/25 13:49) Sodium Chloride Lock (Saline Lock Ns) (05/10/25 14:00) Oxygen Per Hour (05/10/25 13:49) Hydrocodone-Acet 5/325mg Tab (Arlee 5/32 (05/10/25 14:00) Ondansetron Hcl (Zofran) (05/10/25 14:00) Docusate Sodium Capsule (Colace Capsule) (05/10/25 14:00) Fall Risk Precautions In Place QSHIFT (05/10/25 13:49) Complete Blood Count (05/11/25 04:00) Comprehensive Metabolic Panel (05/11/25 04:00) Condition: Serious (05/10/25 13:49) Acetaminophen Tablet (Tylenol Tablet) (05/10/25 14:00) Maintain Bed Rest (05/10/25 13:49) Sequential Compression Device (05/10/25 ) Vital Signs Date Time Temp Pulse Resp B/P (MAP) Pulse Ox O2 Delivery O2 Flow Rate FiO2 05/10/25 13:01 113 15 146/84 (104) 93 05/10/25 11:35 151/131 05/10/25 11:00 16 98 Room Air* 0 21 05/10/25 10:09 70 18 196/126 (149) 100 05/10/25 09:56 67 13 99 Room Air* 0 21 05/10/25 09:05 70 05/10/25 08:53 97.8 63 18 143/104 98 97.8 Laboratory Tests Test 05/10/25 09:26 White Blood Count 6.2 10^3/uL (4.4-10.8) Medications Medications Dose Ordered Sig/Heena Route Start Time Stop Time Status Last Admin Dose Admin Albuterol 20 mg ONCE ONCE NEB 05/10/25 10:30 05/10/25 10:32 DC 05/10/25 11:07 20 MG Furosemide 20 mg ONCE ONCE IV 05/10/25 10:30 05/10/25 10:33 DC 05/10/25 11:35 20 MG Sodium Bicarbonate 50 ml ONCE ONCE IV 05/10/25 10:30 05/10/25 10:33 DC 05/10/25 11:35 50 ML Zirconium Oxide 10 gm ONCE ONCE PO 05/10/25 10:30 05/10/25 10:32 DC 05/10/25 11:35 10 GM Assessment/Plan Assessment/Plan Metabolic encephalopathy Hyperkalemia Hypertensive urgency Confusion state Generalized weakness Plan 1. Admit to telemetry unit 2. Breathing treatment 3. Pain control management 4. Management of fluids and electrolytes 5. Consultation for hospitalist/tele psych 6. Diagnostic tests head CT 7. DVT prophylaxis on SCDs 8. Repeat labs CBC, CMP in a.m. 9. Continue with current medical management 10. Treatment plan discussed with patient and RN. Patient verbalized understanding. Plan discussed with: Patient, Other (RN) My Orders Orders - PRETTY CASTILLO DNP Procedure Category Date Status Time Consistent DIET 05/10/25 Transmitted Carb(Ccho)Diabetes Dinner Amlodipine Tablet PHA 05/11/25 Logged (Norvasc Tablet) 10:00 Amlodipine Tablet PHA 05/10/25 Transmitted (Norvasc Tablet) 14:00 Hydralazine Injection PHA 05/10/25 Transmitted (Apresoline Inject 14:00 Atorvastatin (Lipitor) PHA 05/10/25 Transmitted 22:00 Creatine Kinase LAB 05/10/25 Transmitted 13:49 Glucose Blood PHA 05/10/25 Transmitted (Accu-Chek Comfort 17:00 Bedtime Insulin Scale PHA 05/10/25 Transmitted 22:00 Moderate Insulin Ss PHA 05/10/25 Transmitted 17:00 Dextrose 50% Syringe PHA 05/10/25 Transmitted 14:00 Allergies THUY 05/10/25 In Process 13:49 Code Status CODE 05/10/25 Transmitted 13:49 Sodium Chloride Lock PHA 05/10/25 Transmitted (Saline Lock Ns) 14:00 Oxygen Per Hour RT 05/10/25 Transmitted 13:49 Hydrocodone-Acet PHA 05/10/25 Transmitted 5/325mg Tab (Arlee 14:00 Ondansetron Hcl PHA 05/10/25 Transmitted (Zofran) 14:00 Docusate Sodium PHA 05/10/25 Transmitted Capsule (Colace 14:00 Fall Risk Precautions THUY 05/10/[address] 13:49 Complete Blood Count LAB 05/11/25 Verified 04:00 Comprehensive LAB 05/11/25 Verified Metabolic Panel 04:00 Condition: Serious THUY 05/10/25 In Process 13:49 Acetaminophen Tablet PHA 05/10/25 Transmitted (Tylenol Tablet) 14:00 Maintain Bed Rest THUY 05/10/25 In Process 13:49 Sequential THUY 05/10/25 In Process Compression Device Problem List: (1) Metabolic encephalopathy (2) Hyperkalemia (3) Hypertensive urgency (4) Confusion state (5) Generalized weakness Date of Service: May 10, 2025 Billing Provider: PRETTY CASTILLO DNP Common Visit Codes: [id number] INP/OBS CARE (HIGH) PRETTY CASTILLO DNP May 10, 2025 13:56
[2025-05-10] MEDS ORDERED: MORPHINE SULFATE INJ 2 MG/ml SYRG IV PRN (14:00)
[2025-05-10] MEDS ORDERED: DEXTROSE (50%) 50ML SYRG IV PRN (14:00)
[2025-05-10] MEDS ORDERED: NITROGLYCERIN 0.4 MG SL TAB SL PRN (14:00)
[2025-05-10] MEDS: SODIUM CHLOR 0.9% PF (SALINE LOCK) 10ML VIAL/SYR IV SCH (14:09)
--- NOTE | 2025-05-10 14:22 | DVHCONRES ---
Date Seen: May 10, 2025 Resident Creating Document: LALITA KINGSTON RESIDENT History of Present Illness SAM MCNULTY 74-year-old female with PMHx of type 2 diabetes mellitus, previous HI has come to the ER via EMS for Altered level of consciousness. According to EMS, patient called them complaining of presyncope, history of frequent falls and slight chest pain. EMS reports that patient was pacing outside her house when they arrived, had locked the doors of her home, made no sense when she spoke, seemed paranoid (unable to know if this is her baseline) speaking mostly about babies being killed and stolen. Blood sugar level in the ambulance was 206, heart rate 80s, BP 141/102 mmHg and EKG showed normal sinus rhythm. PAST MEDICAL HISTORY: Anxiety, DM, HTN Surgical History: Denies all surgeries Family History: Not significant Social History Smoker: Non-Smoker Alcohol: Denies ETOH Use Drugs: Denies Drug Use Lives In: Home Patient seen and examined at the bedside. Unable to obtain ROS due to patient's clinical status she is altered Family History: Cancer G8 MOTHER Family history: Cardiovascular disease G8 FATHER Allergies: Coded Allergies: Sulfa Antibiotics (Verified Allergy, Unknown, 06/02/16) Home Meds Reported Medications [place] Carbonate ([place] Carbonate) 300 Mg Cap, #270 07/18/16 Sitagliptin Phosphate (Januvia) 100 Mg Tab, #30 07/18/16 Oxybutynin Chloride (Oxybutynin Chloride) 5 Mg Tab, #90 07/18/16 Simvastatin (Simvastatin) 20 Mg Tab, #90 07/18/16 Metformin Hydrochloride (Metformin Hcl) 1,000 Mg Tab, #180 07/18/16 Pioglitazone Hydrochloride (PIOGLITAZONE HCL) 15 Mg Tab, #90 07/18/16 Hydroxyzine Pamoate (Hydroxyzine Pamoate) 50 Mg Cap, #30 07/18/16 Baclofen (Baclofen) 10 Mg Tab, #30 07/18/16 Acetaminophen (Mapap) 500 Mg Tab, #120 07/18/16 Lisinopril (Lisinopril) 20 Mg Tab, #30 07/18/16 Ibuprofen Micronized (Ibuprofen) 800 Mg Tab, #20 07/18/16 Current Medications Current Medications Medications (Trade) Dose Ordered Sig/Heena Route PRN Reason Start Time Stop Time Status Last Admin Amlodipine Besylate (Norvasc Tablet) 5 mg DAILY PO 05/11/25 10:00 Hydralazine HCl (Apresoline Injection) 10 mg Q6HP PRN IV SBP>150 05/10/25 14:00 Atorvastatin Calcium (Lipitor) 10 mg HS PO 05/10/25 22:00 Diagnostic Test (Pha) (Accu-Chek Comfort Curve T) 1 strip ACHS 05/10/25 17:00 Insulin Human Regular (InsuLIN R) HS SC 05/10/25 22:00 Insulin Human Regular (InsuLIN R) AC SC 05/10/25 17:00 Dextrose 50 ml UD PRN IV Blood Sugar LESS THAN 60 05/10/25 14:00 Sodium Chloride (Saline Lock Ns) 10 ml Q8HR IV 05/10/25 14:00 05/10/25 14:09 Acetaminophen/ Hydrocodone Bitart ([place] 5/325MG Tab) 1 tab Q4HP PRN PO MODERATE PAIN (4-6 PAIN SCALE) 05/10/25 14:00 Ondansetron HCl (Zofran) 4 mg Q4HP PRN IV NAUSEA / VOMITING 05/10/25 14:00 Docusate Sodium (Colace Capsule) 100 mg BIDPRN PRN PO FOR CONSTIPATION 05/10/25 14:00 Acetaminophen (Tylenol Tablet) 650 mg Q6HP PRN PO PAIN SCALE 1-3 OR TEMP>100.4 05/10/25 14:00 Nitroglycerin (Ntrostat Sublingual) 0.4 mg Q5MINP PRN SL FOR CHEST PAIN 05/10/25 14:00 Morphine Sulfate 2 mg Q30M PRN IV FOR CHEST PAIN 05/10/25 14:00 Vital Signs Vital Signs Date Time Temp Pulse Resp B/P (MAP) Pulse Ox O2 Delivery O2 Flow Rate FiO2 05/10/25 13:01 113 15 146/84 (104) 93 05/10/25 11:00 Room Air* 0 21 05/10/25 08:53 97.8 97.8 Physical Exam Pt is lying on bed General Appearance: Altered HEENT: Atraumatic, Mucous membranes moist/pink Respiratory: Clear to auscultation, Normal air movement, No added sounds Cardiovascular: Regular rate, Normal S1, Normal S2, No murmurs Abdominal: Active bowel sounds, Soft, no distention, no tenderness Extremities: No edema, Normal pulses, No tenderness/swelling Skin: No Significant rash, except past surgical scars Neuro: Normal speech, sensorimotor deficits none Nurse was there as shipping support clerk during examination Labs/Diagnostic Data Labs Test 05/10/25 11:23 05/10/25 09:55 05/10/25 09:26 Range/Units POC Glucose 86 70-106 mg/dl Urine Color Light-yellow Yellow Urine Clarity Clear Clear Urine pH 5.5 5.0-9.0 Urine Specific [place] 1.017 1.001-1.035 Urine Protein Negative Negative Urine Ketones Negative Negative Urine Blood Negative Negative /uL Urine Nitrite Negative Negative Urine Bilirubin Negative Negative Urine Urobilinogen Normal Negative mg/dL Urine Leukocyte Esterase Trace Negative /uL Urine RBC 1 0 - 4 /hpf Urine Microscopic WBC 2 0-5 /HPF Urine Squamous Epithelial Cells Few <5 /hpf Urine Bacteria None seen None Seen /hpf Urine Glucose Normal Normal mg/dL Urine Opiates Screen Neg NEGATIVE Urine Fentanyl Screen Neg NEGATIVE Urine Barbiturates Screen Neg NEGATIVE Urine Phencyclidine Screen Neg NEGATIVE Urine Amphetamines Screen Neg NEGATIVE Urine Benzodiazepines Screen Neg NEGATIVE Urine Cocaine Screen Neg NEGATIVE Urine Cannabinoids Screen Neg NEGATIVE White Blood Count 6.2 4.4-10.8 10^3/uL Red Blood Count 4.04 4.0-5.20 10^6/uL Hemoglobin 12.7 12.2-16.2 g/dL Hematocrit 38.6 36.0-46.0 % Mean Corpuscular Volume 95.6 80.0-100.0 fL Mean Corpuscular Hemoglobin 31.5 28.0-32.0 pg Mean Corpuscular Hemoglobin Concent 32.9 32.0-36.0 g/dL Red Cell Distribution Width 13.1 11.8-14.3 % Platelet Count 241 140-450 10^3/uL Mean Platelet Volume 7.3 6.9-10.8 fL Neutrophils (%) (Auto) 78.6 37.0-80.0 % Lymphocytes (%) (Auto) 12.2 10.0-50.0 % Monocytes (%) (Auto) 7.4 0.0-12.0 % Eosinophils (%) (Auto) 1.2 0.0-7.0 % Basophils (%) (Auto) 0.6 0.0-2.0 % Neutrophils # (Auto) 4.8 1.6-8.6 10 ^3/uL Lymphocytes # (Auto) 0.8 0.4-5.4 10 ^3/uL Monocytes # (Auto) 0.5 0-1.3 10 ^3/uL Eosinophils # (Auto) 0.1 0-0.8 10 ^3/uL Basophils # (Auto) 0 0-0.2 10 ^3/uL Nucleated Red Blood Cells 0.0 % Sodium Level 140 136-145 mmol/L Potassium Level 5.5 H 3.5-5.1 mmol/L Chloride Level 105 98-107 mmol/L Carbon Dioxide Level 24 20-31 mmol/L Anion Gap 11 5-15 Blood Urea Nitrogen 21 9-23 mg/dL Creatinine 0.88 0.550-1.02 mg/dL Glomerular Filtration Rate Calc 68 >90 mL/min BUN/Creatinine Ratio 23.9 H 10.0-20.0 Serum Glucose 145 H 74-106 mg/dL Calcium Level 10.5 H 8.7-10.4 mg/dL Assessment BOLIVAR on CKD stage 2 Hyperkalemia Metabolic encephalopathy Plan Urine studies Urine osmolality Check TTK gradient Monitor lab Avoid nephrotoxic agents Psych microsoft dynamics consultant Rest of management per primary team Patient seen and examined by myself today in round with the medicien resident, I agree with the assessment and plan I would like to thank Dr. Fernandez for the consult, will follow Case discussed with the Dr. Mosher Plan discussed with: Patient THEELALITA RESIDENT May 10, 2025 14:22 JASON MOSHER MD May 10, 2025 16:17
[2025-05-10 16:22] LABS: Protein, Urine 10.3 mg/dL (1-14)
[2025-05-10] MEDS: ALPRAZolam 0.5 MG TAB PO PRN (16:42)
[2025-05-10] MEDS: HYDROcodone-ACET 5/325MG TAB PO PRN (18:24)
[2025-05-10] MEDS: ACCU-CHEK COMFORT CURVE STRIP VI SCH (18:24)
[2025-05-10] MEDS: InsuLIN REG 1unit/0.01ml Soln (100units/ml) SC SCH ×2 (18:34→22:00)
[2025-05-10] MEDS: ATORVASTATIN 20 MG TAB PO SCH (22:00)
[2025-05-10] MEDS: hydrALAZINE HCL 20 MG/ML VL IV PRN (22:20)
[2025-05-10] MEDS: ONDANSETRON HCL 4 MG/2 ML VIAL IV PRN (22:21)
[2025-05-10 23:00] VITALS: BP 128/65; PULSE 65; RESP 18; O2SAT 98
[2025-05-10 23:15] VITALS: PULSE 64
[2025-05-11 05:00] VITALS: BP 145/79; PULSE 90; RESP 19; TEMP 98; O2SAT 100
[2025-05-11 06:14] LABS: Hematocrit 41.1 % (36.0-46.0); Hemoglobin 13.9 g/dL (12.2-16.2); Mean Corpuscular Hemoglobin 32.0 pg (28.0-32.0); Mean Corpuscular Volume 94.4 fL (80.0-100.0); Nucleated Red Blood Cells % 0.0 %
[2025-05-11 06:18] LABS: Alanine Aminotransferase 16 U/L (7-40); Albumin 4.5 g/dL (3.2-4.8); Alkaline Phosphatase 51 U/L (46-116); Anion Gap 12 (5-15); BUN/Creatinine Ratio 22.3 (10.0-20.0); Bilirubin, Total 0.5 mg/dL (0.2-1.0); Blood Urea Nitrogen 21 mg/dL (9-23); Carbon Dioxide 27 mmol/L (20-31); Chloride 102 mmol/L (98-107); Potassium 4.8 mmol/L (3.5-5.1); Sodium 141 mmol/L (136-145); Total Protein 7.1 g/dL (5.7-8.2)
[2025-05-11 06:33] LABS: Calcium 10.4 mg/dL (8.7-10.4); Glucose 196 mg/dL (74-106)
[2025-05-11 08:00] VITALS: PULSE 74; RESP 16
[2025-05-11 09:00] VITALS: BP 151/71; PULSE 69; RESP 18; TEMP 98.6; O2SAT 100
--- NOTE | 2025-05-11 11:50 | DVHPN2 ---
Progress Note Date Seen: May 11, 2025 Resident Creating Document: LALITA KINGSTON RESIDENT Medical Necessity Reason Pt with a Central, PICC or Fol: No Subjective Review of Systems Patient seen and examined at the bedside. Unable to obtain ROS due to patient's clinical status she is altered Other Systems: Patient seen and examined by myself today in follow-up with the medicine resident, I agree with his assessment and plan Objective vital signs Vital Sign Date Time Temp Pulse Resp B/P (MAP) Pulse Ox O2 Delivery O2 Flow Rate FiO2 05/11/25 09:54 151/71 05/11/25 09:00 98.6 69 18 100 98.6 05/11/25 08:00 Room Air* 0 21 Total Intake and Output 05/10/25 05/10/25 05/11/25 15:00 23:00 07:00 Intake Total 240 ml Balance 240 ml medications Current Medications Medications Dose Ordered Sig/Heena Route Start Time Stop Time Status Last Admin Dose Admin Amlodipine Besylate 5 mg DAILY PO 05/11/25 10:00 05/11/25 09:54 5 MG Hydralazine HCl 10 mg Q6HP PRN IV 05/10/25 14:00 05/10/25 22:20 10 MG Atorvastatin Calcium 10 mg HS PO 05/10/25 22:00 Diagnostic Test (Pha) 1 strip ACHS 05/10/25 17:00 05/11/25 06:27 1 STRIP Insulin Human Regular HS SC 05/10/25 22:00 05/10/25 22:00 3 UNITS Insulin Human Regular AC SC 05/10/25 17:00 05/11/25 06:25 3 UNITS Dextrose 50 ml UD PRN IV 05/10/25 14:00 Sodium Chloride 10 ml Q8HR IV 05/10/25 14:00 05/11/25 06:08 10 ML Acetaminophen/ Hydrocodone Bitart 1 tab Q4HP PRN PO 05/10/25 14:00 05/10/25 18:24 1 TAB Ondansetron HCl 4 mg Q4HP PRN IV 05/10/25 14:00 05/11/25 09:54 4 MG Docusate Sodium 100 mg BIDPRN PRN PO 05/10/25 14:00 Acetaminophen 650 mg Q6HP PRN PO 05/10/25 14:00 Nitroglycerin 0.4 mg Q5MINP PRN SL 05/10/25 14:00 Morphine Sulfate 2 mg Q30M PRN IV 05/10/25 14:00 Alprazolam 0.5 mg Q8HPRN PRN PO 05/10/25 15:30 05/11/25 03:56 0.5 MG Examination Pt is lying on bed General Appearance: Altered HEENT: Atraumatic, Mucous membranes moist/pink Respiratory: Clear to auscultation, Normal air movement, No added sounds Cardiovascular: Regular rate, Normal S1, Normal S2, No murmurs Abdominal: Active bowel sounds, Soft, no distention, no tenderness Extremities: No edema, Normal pulses, No tenderness/swelling Skin: No Significant rash, except past surgical scars Neuro: Normal speech, sensorimotor deficits none Nurse was there as rn surgical during examination laboratory and microbiology Laboratory Tests 05/11/25 05:32 Test 05/11/25 05:32 Range/Units Serum Glucose 196 H 74-106 mg/dL Labs and/or images reviewed: Labs reviewed by me, Image(s) reviewed by me Problem List/Assessment/Plan Problem List/Assessment/Plan BOLIVAR on CKD stage 2 Hyperkalemia likely secondary to dietary indiscretion Paranoia Underlying psychiatric disturbances Plan Kidney function stable stage II TTk is 7 Hyperkalemia resolved Monitor lab Avoid nephrotoxic agents Psych case consultant Rest of management per primary team I will sign off this case, please reconsult as needed Thank you for the consult Case discussed with the Dr. Lin Plan discussed with: Patient My Orders My Orders Orders - LALITA KINGSTON Procedure Category Date Status Time Osmolality, Serum LAB 05/11/25 In Process 08:34 LALITA KINGSTON May 11, 2025 11:50 JASON LIN MD May 11, 2025 14:12
[2025-05-11 13:00] VITALS: BP 140/91; PULSE 78; RESP 16; TEMP 98; O2SAT 99
--- NOTE | 2025-05-11 13:04 | DVHPN2 ---
Reviewed: H&P Changes from previous H/P or p: No Changes General: Per HPI Eyes: No Pain, No Vision change, No Conjunctivae inflammation, No Eyelid inflammation, No Other, No Redness ENT: No Ear pain, No Ear discharge, No Nose pain, No Nose discharge, No Nose congestion, No Mouth pain, No Mouth swelling, No Throat pain, No Throat swelling, No Other Cardiovascular: No Chest Pain, No Palpitations, No Orthopnea, No Paroxysmal Noc. Dyspnea, No Edema, No Lt Headedness, No Other Respiratory: No Cough, No Dry, No Shortness of breath, No SOB with excertion, No Wheezing, No Hemoptysis, No Pleuritic Pain, No Sputum, No Other Gastrointestinal: No Nausea, No Vomiting, No Abdominal Pain, No Diarrhea, No Constipation, No Melena, No Hematochezia, No Other Genitourinary: No Dysuria, No Frequency, No Incontinence, No Hematuria, No Retention, No Other Musculoskeletal: No other, No neck pain, No shoulder pain, No arm pain, No back pain, No hand pain, No leg pain, No foot pain Skin: No Rash, No Lesions, No Jaundice, No Bruising, No Other Objective Vitals Vital Signs Date Time Temp Pulse Resp B/P (MAP) Pulse Ox O2 Delivery O2 Flow Rate FiO2 05/11/25 09:54 151/71 05/11/25 09:00 98.6 69 18 100 98.6 05/11/25 08:00 Room Air* 0 21 Intake/Output Intake and Output 05/11/25 07:00 Intake Total 240 ml Balance 240 ml Intake Oral 240 ml # Voids 3 Exam GEN: Healthy appearing, well-developed, NAD. HEENT: NC/AT; MMM. CV: RRR, no m/r/g. LUNGS: CTAB, no w/r/c. ABD: Soft, NT/ND, NBS, no masses or organomegaly. EXT: skin Warm, well perfused. no rashes. No clubbing, cyanosis, or edema. NEURO: Ambulating with no limitations. No focal deficits. Psych: Tangential speech, delusional thoughts, possible auditory hallucination, alert oriented to self only. Medications Current Medications Medications Dose Ordered Sig/Heena Route Start Time Stop Time Status Last Admin Dose Admin Amlodipine Besylate 5 mg DAILY PO 05/11/25 10:00 05/11/25 09:54 5 MG Hydralazine HCl 10 mg Q6HP PRN IV 05/10/25 14:00 05/10/25 22:20 10 MG Atorvastatin Calcium 10 mg HS PO 05/10/25 22:00 Diagnostic Test (Pha) 1 strip ACHS 05/10/25 17:00 05/11/25 11:30 1 STRIP Insulin Human Regular HS SC 05/10/25 22:00 05/10/25 22:00 3 UNITS Insulin Human Regular AC SC 05/10/25 17:00 05/11/25 12:14 3 UNITS Dextrose 50 ml UD PRN IV 05/10/25 14:00 Sodium Chloride 10 ml Q8HR IV 05/10/25 14:00 05/11/25 12:02 10 ML Acetaminophen/ Hydrocodone Bitart 1 tab Q4HP PRN PO 05/10/25 14:00 05/10/25 18:24 1 TAB Ondansetron HCl 4 mg Q4HP PRN IV 05/10/25 14:00 05/11/25 09:54 4 MG Docusate Sodium 100 mg BIDPRN PRN PO 05/10/25 14:00 Acetaminophen 650 mg Q6HP PRN PO 05/10/25 14:00 Nitroglycerin 0.4 mg Q5MINP PRN SL 05/10/25 14:00 Morphine Sulfate 2 mg Q30M PRN IV 05/10/25 14:00 Alprazolam 0.5 mg Q8HPRN PRN PO 05/10/25 15:30 05/11/25 12:14 0.5 MG Laboratory Results Laboratory Tests 05/11/25 05:32 Chemistry Test 05/11/25 05:32 Albumin 4.5 g/dL (3.2-4.8) Calcium Level 10.4 mg/dL (8.7-10.4) Total Protein 7.1 g/dL (5.7-8.2) LFT Test 05/11/25 05:32 Alanine Aminotransferase (ALT) 16 U/L (7-40) Alkaline Phosphatase 51 U/L (46-116) Aspartate Amino Transferase (AST) 23 U/L (13-40) Total Bilirubin 0.5 mg/dL (0.2-1.0) Urinalysis Test 05/10/25 09:55 Urine Color Light-yellow (Yellow) Urine Clarity Clear (Clear) Urine pH 5.5 (5.0-9.0) Urine Specific [place] 1.017 (1.001-1.035) Urine Protein Negative (Negative) Urine Ketones Negative (Negative) Urine Blood Negative /uL (Negative) Urine Nitrite Negative (Negative) Urine Bilirubin Negative (Negative) Urine Urobilinogen Normal mg/dL (Negative) Urine Leukocyte Esterase Trace /uL (Negative) Urine RBC 1 /hpf (0 - 4) Urine Microscopic WBC 2 /HPF (0-5) Urine Squamous Epithelial Cells Few /hpf (<5) Urine Bacteria None seen /hpf (None Seen) Urine Osmolality 452 mOsm/kg Urine Creatinine 60.46 mg/dL (30.0-125.0) Urine Protein/Creatinine Ratio 0.17 Urine Sodium 80 mmol/L (40-220) Urine Potassium 54 mmol/L (12-62) Urine Glucose Normal mg/dL (Normal) Urine Total Protein 10.3 mg/dL (1-14) Labs and/or images reviewed: Labs reviewed by me, Image(s) reviewed by me Assessment/Plan Assessment/Plan The patient is a 74 years old female with past medical history of anxiety, diabetes mellitus, hypertension, and hyperlipidemia who presented to [facility] ED for evaluation of altered mental status. As reported by EMS, patient called complaining of presyncopal episode, frequent falls, and slight chest pain. When EMS arrived on the scene, patient was pacing outside her house, locked the doors of her home with poor insight, thought process, hopelessness, paranoid, severe anxiety, and speaking mostly about babies being killed and stolen. Patient has rapid speech, talking about some female trying to steal her home, pulled out her master's degrees that stuffed in her socks, states she carries around as people are trying to steal it. 05/11: Pending psych eval. Start olanzapine 5 daily, Haldol 5 intramuscular q.6 for agitation. Sitter at bedside. Pending psych eval. Social consult for home safety eval and for identification. Diagnosis: acute toxic metabolic encephalopathy delirium possible dementia possible acute psychosis possible history of anxiety, diabetes mellitus, hypertension, hyperlipidemia Plan: Olanzapine 5 mg Haldol 5 mg intramuscular q.6 PRN for agitation Psychiatry consult Hold off anxiolytics unless absolutely needed Amlodipine 5 Lipitor 10 Moderate sliding scale insulin a.c. HS Zofran PRN for nausea Tele Full code Plan discussed with: Patient Date of Service: May 11, 2025 Billing Provider: CECY LANGLEY MD Common Visit Codes: [id number] INP/OBS CARE(HIGH) CECY LANGLEY MD May 11, 2025 13:04
[2025-05-11] MEDS: OLANZapine 5 MG TAB PO ONE (14:19)
--- NOTE | 2025-05-11 17:04 | DVH ---
CLINICAL HISTORY: ALOC, r/o cva/hemmrhage TECHNIQUE: Helical scanning was performed of the head from the skull base to the vertex. Multiplanar reconstructions were performed. This exam was performed according to our departmental dose optimization program. Up-to-date CT equipment and radiation dose reduction techniques are utilized as appropriate. WID: COMPARISON: CT HEAD WITHOUT CONTRAST on DOS: 08/31/24 FINDINGS: There is no acute intracranial hemorrhage, CT evidence of acute ischemic changes, mass effect, midline shift, or extra-axial fluid collection. Ventricles are within normal limits. There is mild generalized parenchymal volume loss with prominence of the sulci. . The imaged intraorbital structures are unremarkable The imaged paranasal sinuses are clear. The mastoid air cells are clear. The calvarium is intact. IMPRESSION: NO ACUTE INTRACRANIAL FINDINGS Mild generalized parenchymal volume loss
--- NOTE | 2025-05-11 17:05 | DVHINCON2 ---
Date of Service if different f: May 11, 2025 Consultation ([facility]) Consulting Physician: RADHA FUENTES MD Labs Laboratory Tests Test 05/10/25 09:26 05/10/25 09:55 05/11/25 05:32 05/11/25 11:54 Creatine Kinase 199 U/L (34-145) Urine Color Light-yellow (Yellow) Urine Clarity Clear (Clear) Urine pH 5.5 (5.0-9.0) Urine Specific [place] 1.017 (1.001-1.035) Urine Protein Negative (Negative) Urine Ketones Negative (Negative) Urine Blood Negative /uL (Negative) Urine Nitrite Negative (Negative) Urine Bilirubin Negative (Negative) Urine Urobilinogen Normal mg/dL (Negative) Urine Leukocyte Esterase Trace /uL (Negative) Urine RBC 1 /hpf (0 - 4) Urine Microscopic WBC 2 /HPF (0-5) Urine Squamous Epithelial Cells Few /hpf (<5) Urine Bacteria None seen /hpf (None Seen) Urine Osmolality 452 mOsm/kg Urine Creatinine 60.46 mg/dL (30.0-125.0) Urine Protein/Creatinine Ratio 0.17 Urine Sodium 80 mmol/L (40-220) Urine Potassium 54 mmol/L (12-62) Urine Glucose Normal mg/dL (Normal) Urine Total Protein 10.3 mg/dL (1-14) Urine Opiates Screen Neg (NEGATIVE) Urine Fentanyl Screen Neg (NEGATIVE) Urine Barbiturates Screen Neg (NEGATIVE) Urine Phencyclidine Screen Neg (NEGATIVE) Urine Amphetamines Screen Neg (NEGATIVE) Urine Benzodiazepines Screen Neg (NEGATIVE) Urine Cocaine Screen Neg (NEGATIVE) Urine Cannabinoids Screen Neg (NEGATIVE) White Blood Count 7.5 10^3/uL (4.4-10.8) Red Blood Count 4.36 10^6/uL (4.0-5.20) Hemoglobin 13.9 g/dL (12.2-16.2) Hematocrit 41.1 % (36.0-46.0) Mean Corpuscular Volume 94.4 fL (80.0-100.0) Mean Corpuscular Hemoglobin 32.0 pg (28.0-32.0) Mean Corpuscular Hemoglobin Concent 33.9 g/dL (32.0-36.0) Red Cell Distribution Width 13.1 % (11.8-14.3) Platelet Count 243 10^3/uL (140-450) Mean Platelet Volume 7.4 fL (6.9-10.8) Neutrophils (%) (Auto) 90.3 % (37.0-80.0) Lymphocytes (%) (Auto) 4.9 % (10.0-50.0) Monocytes (%) (Auto) 4.6 % (0.0-12.0) Eosinophils (%) (Auto) 0.0 % (0.0-7.0) Basophils (%) (Auto) 0.2 % (0.0-2.0) Neutrophils # (Auto) 6.7 10 ^3/uL (1.6-8.6) Lymphocytes # (Auto) 0.4 10 ^3/uL (0.4-5.4) Monocytes # (Auto) 0.3 10 ^3/uL (0-1.3) Eosinophils # (Auto) 0 10 ^3/uL (0-0.8) Basophils # (Auto) 0 10 ^3/uL (0-0.2) Nucleated Red Blood Cells 0.0 % Sodium Level 141 mmol/L (136-145) Potassium Level 4.8 mmol/L (3.5-5.1) Chloride Level 102 mmol/L (98-107) Carbon Dioxide Level 27 mmol/L (20-31) Anion Gap 12 (5-15) Blood Urea Nitrogen 21 mg/dL (9-23) Creatinine 0.94 mg/dL (0.550-1.02) Glomerular Filtration Rate Calc 63 mL/min (>90) BUN/Creatinine Ratio 22.3 (10.0-20.0) Serum Glucose 196 mg/dL (74-106) Serum Osmolality 301 mOsm/kg (278-298) Calcium Level 10.4 mg/dL (8.7-10.4) Total Bilirubin 0.5 mg/dL (0.2-1.0) Aspartate Amino Transf (AST/SGOT) 23 U/L (13-40) Alanine Aminotransferase (ALT/SGPT) 16 U/L (7-40) Alkaline Phosphatase 51 U/L (46-116) Total Protein 7.1 g/dL (5.7-8.2) Albumin 4.5 g/dL (3.2-4.8) Bedside Glucose 175 mg/dl (70-106) Test 05/11/25 13:58 Ammonia < 10 umol/L (11-32) Thyroid Stimulating Hormone (TSH) 0.50 uIU/mL (0.55-4.78) Appetite: Fair Appearance: Stated age, Groomed Psychomotor activity: Pacing, Restless Behavioral: [place] Eye contact: Limited Speech: Soft, Confused Affect: Mood Congruent Mood: Euphoric Thought processes: Tangential, Disorganized Thought content: Paranoid Suicidal ideations: Absent Homicidal ideations: Absent Orientation: Person, Confused Memory intact: Poor Intellect: Average Abstractability: Marginal Concentration: Limited Attention: Limited Judgement: Marginal Insight: Poor Vitals Vital Signs Date Time Temp Pulse Resp B/P (MAP) Pulse Ox O2 Delivery O2 Flow Rate FiO2 05/11/25 13:00 98.0 78 16 140/91 (107) 99 98.0 05/11/25 08:00 Room Air* 0 21 Current medications Current Medications Medications Dose Ordered Sig/Heena Route Start Time Stop Time Status Last Admin Dose Admin Amlodipine Besylate 5 mg DAILY PO 05/11/25 10:00 05/11/25 09:54 5 MG Hydralazine HCl 10 mg Q6HP PRN IV 05/10/25 14:00 05/10/25 22:20 10 MG Atorvastatin Calcium 10 mg HS PO 05/10/25 22:00 Diagnostic Test (Pha) 1 strip ACHS 05/10/25 17:00 05/11/25 11:30 1 STRIP Insulin Human Regular HS SC 05/10/25 22:00 05/10/25 22:00 3 UNITS Insulin Human Regular AC SC 05/10/25 17:00 05/11/25 12:14 3 UNITS Dextrose 50 ml UD PRN IV 05/10/25 14:00 Sodium Chloride 10 ml Q8HR IV 05/10/25 14:00 05/11/25 12:02 10 ML Acetaminophen/ Hydrocodone Bitart 1 tab Q4HP PRN PO 05/10/25 14:00 05/10/25 18:24 1 TAB Ondansetron HCl 4 mg Q4HP PRN IV 05/10/25 14:00 05/11/25 09:54 4 MG Docusate Sodium 100 mg BIDPRN PRN PO 05/10/25 14:00 Acetaminophen 650 mg Q6HP PRN PO 05/10/25 14:00 Nitroglycerin 0.4 mg Q5MINP PRN SL 05/10/25 14:00 Morphine Sulfate 2 mg Q30M PRN IV 05/10/25 14:00 Alprazolam 0.5 mg Q8HPRN PRN PO 05/10/25 15:30 05/11/25 12:14 0.5 MG Olanzapine 5 mg DAILY PO 05/12/25 10:00 Haloperidol Lactate 5 mg Q6HP PRN IM 05/11/25 14:00 Treatment plan discussed: With staff Diagnosis: altered mental status, unspecified psychosis Plan : This is a 74-year-old female with altered mental status likely dementia She is also exhibiting psychotic symptoms of paranoia and auditory hallucinations Recommend 1: sitter for safety Patient may need to be on [id number] for GD and transfer to inpatient psychiatric facility for treatment and stabilization after ruling out medical causes. Continue Zyprexa 5mg po Bid for psychosis and agitation Re-eval as needed collateral from family would be helpful History of Present Illness Reason for Consult : Patient was reporting auditory hallucinations and paranoid thoughts HPI : This is a 74-year-old female BIB ambulance for altered mental status. Patient is evaluated via telepsychiatry. On exam, patient is getting up walking around the room, she was later able to sit down with prompting. She was only oriented to her name. She reports being h ere because of the babies. She reports someone killed two babies. When you see the babies how would you feel? When asked if having auditory/visual hallucinations, replies, she's shy, taking 6 tests. She could not accurately provide any history. She cannot recall if she has prior history of trouble remembering. Per chart review, patient was also here for altered mental status in august of this year She reports living with daughter but could not provide her name. She denies feeling depressed or suicidal/homicidal thoughts. Past Psychiatric History : unable to assess Past Medical History : per chart review Social History : Lives with daughter. Other history, unable to assess. UDs is negative FIOR MCDONALD DNP May 11, 2025 17:05
[2025-05-11 20:00] VITALS: PULSE 77; RESP 16
[2025-05-11 21:00] VITALS: BP 134/80; PULSE 88; RESP 19; TEMP 98; O2SAT 98
[2025-05-12 01:00] VITALS: BP 118/68; PULSE 80; RESP 19; TEMP 98; O2SAT 99
[2025-05-12 05:00] VITALS: BP 119/79; PULSE 82; RESP 19; TEMP 98; O2SAT 100
[2025-05-12 08:00] VITALS: PULSE 46; PULSE 82; RESP 19; O2SAT 100
[2025-05-12 09:00] VITALS: BP 117/68; PULSE 70; RESP 17; TEMP 97.8; O2SAT 99
[2025-05-12] MEDS: OLANZapine 5 MG TAB PO SCH (09:55)
[2025-05-12 10:23] LABS: Triglycerides 103.0 mg/dL (< 150)
[2025-05-12 10:25] LABS: Cholesterol 162.0 mg/dL (< 200)
[2025-05-12 10:30] LABS: Free T3 3.44 pg/mL (2.3-4.2); Free T4 (Free Thyroxine) 1.5 ng/dL (0.89-1.76)
[2025-05-12 10:31] LABS: HDL Cholesterol 77.0 mg/dL (40-59); Magnesium 1.4 mg/dL (1.6-2.6)
--- NOTE | 2025-05-12 11:28 | DVHINCON2 ---
Date Seen: May 12, 2025 Referring Physician MICHELLE Ayala Reason for Consultation Bradycardia History of Present Illness This is a 74-year-old female patient who presents to the emergency room with chief complaint of confusion and paranoia. At the time of assessment, the patient is only alert to self. When asked questions regarding why she is in the hospital, she replies with answers that do not make sense. When asked why she came to the hospital, the patient stated, "because I do not trust him". When asked who she was speaking about, the patient changed the topic and began asking where her cell phone was. The patient is unable to carry on a conversation. The patient's speech is rapid and disorganized. 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 Cardiology has been consulted at this time for episodes of bradycardia on the engine monitor. A twelve lead electrocardiogram done upon admission reveals normal sinus rhythm with artifact in multiple leads (EKG machine reads atrial fibrillation). When reviewing overnight events on engine monitor, the patient is noted to have episodes of bradycardia as low as 36 beats per minute with no atrioventricular blocks or pauses noted. At the time of assessment, the patient is in normal sinus rhythm. Significant past medical history per medical records and bedside RN given that the patient is confused. Significant past medical history includes hypertension, myocardial infarction and type 2 diabetes mellitus. Unable to clarify with the patient if this is an accurate past medical history given that she is paranoid and confused. Previous visit at this facility on 08/31/2024 mentions a possible history of dementia. Patients prescribed medication (seen via external medication history) significant for quetiapine fumarate. Unsure if patient has underlying schizophrenia, bipolar disorder, anxiety, etc. as she is unable to verify any history. Past Medical History Past medical history reviewed. No other significant than mentioned above. Past Surgical History Unable to obtain as the patient is confused Family History: Cancer G8 MOTHER Family history: Cardiovascular disease G8 FATHER Family History Unable to obtain as the patient is confused Social History Unable to obtain as the patient is confused Allergies: Coded Allergies: Sulfa Antibiotics (Verified Allergy, Unknown, 06/02/16) Home Meds Reported Medications Buchanan Carbonate (Buchanan Carbonate) 300 Mg Cap, #270 07/18/16 Sitagliptin Phosphate (Januvia) 100 Mg Tab, #30 07/18/16 Oxybutynin Chloride (Oxybutynin Chloride) 5 Mg Tab, #90 07/18/16 Simvastatin (Simvastatin) 20 Mg Tab, #90 07/18/16 Metformin Hydrochloride (Metformin Hcl) 1,000 Mg Tab, #180 07/18/16 Pioglitazone Hydrochloride (PIOGLITAZONE HCL) 15 Mg Tab, #90 07/18/16 Hydroxyzine Pamoate (Hydroxyzine Pamoate) 50 Mg Cap, #30 07/18/16 Baclofen (Baclofen) 10 Mg Tab, #30 07/18/16 Acetaminophen (Mapap) 500 Mg Tab, #120 07/18/16 Lisinopril (Lisinopril) 20 Mg Tab, #30 07/18/16 Ibuprofen Micronized (Ibuprofen) 800 Mg Tab, #20 07/18/16 Home Meds Home medications reviewed. Current Medications Current Medications Medications (Trade) Dose Ordered Sig/Heena Route PRN Reason Start Time Stop Time Status Last Admin Olanzapine (ZyPREXA Tablet) 5 mg DAILY PO 05/12/25 10:00 05/12/25 09:55 Haloperidol Lactate (Haldol) 5 mg Q6HP PRN IM AGITATION 05/11/25 14:00 Review of Systems Constitutional: No symptom reported Ears, Nose, & Throat: No symptom reported Eyes: No symptom reported Neurological: No symptoms reported Pulmonary/Respiratory: No symptoms reported Cardiovascular: No symptom reported Gastrointestinal: No symptom reported Genitourinary: No symptom reported Musculoskeletal: No symptom reported Skin: No symptom reported Psychiatric: Paranoia, confusion Endocrine: No symptom reported Hematologic/Lymphatic: No symptom reported Vital Signs Vital Signs Date Time Temp Pulse Resp B/P (MAP) Pulse Ox O2 Delivery O2 Flow Rate FiO2 05/12/25 09:55 119/61 05/12/25 09:00 97.8 70 17 99 97.8 05/12/25 08:00 Room Air* 0 21 Physical Exam General Appearance: No acute distress. Pulmonary/Respiratory: Clear, bilateral breaths sounds. Cardiovascular/Chest: Regular rate and rhythm. Peripheral Pulses: 2+ Radial (R). 2+ Radial (L). 2+ Pedal (R). 2+ Pedal (L) Abdominal Exam: Normal bowel sounds. Ankle Exam: Negative ankle edema Lower extremities: Negative lower extremity edema Neuro/Mental Status: A/OX1, confused Thoughts/Psych: Disorganized Appearance: No acute distress. Skin Exam: Normal inspection. Normal color. Warm and dry. Labs/Diagnostic Data Labs Test 05/12/25 09:40 05/12/25 06:06 05/11/25 13:58 05/11/25 05:32 Range/Units Hemoglobin A1c 7.7 H <5.7 % A1C Magnesium Level 1.4 L 1.6-2.6 mg/dL Triglycerides Level 103 < 150 mg/dL Cholesterol Level 162 < 200 mg/dL LDL Cholesterol 55 < 100 mg/dL HDL Cholesterol 77 H 40-59 mg/dL Free Thyroxine (T4) Calculated 1.50 0.89-1.76 ng/dL Free Triiodothyronine (T3) pg/mL 3.44 2.3-4.2 pg/mL POC Glucose 122 H 70-106 mg/dl Ammonia < 10 L 11-32 umol/L Thyroid Stimulating Hormone (TSH) 0.50 L 0.55-4.78 uIU/mL White Blood Count 7.5 4.4-10.8 10^3/uL Red Blood Count 4.36 4.0-5.20 10^6/uL Hemoglobin 13.9 12.2-16.2 g/dL Hematocrit 41.1 36.0-46.0 % Mean Corpuscular Volume 94.4 80.0-100.0 fL Mean Corpuscular Hemoglobin 32.0 28.0-32.0 pg Mean Corpuscular Hemoglobin Concent 33.9 32.0-36.0 g/dL Red Cell Distribution Width 13.1 11.8-14.3 % Platelet Count 243 140-450 10^3/uL Mean Platelet Volume 7.4 6.9-10.8 fL Neutrophils (%) (Auto) 90.3 H 37.0-80.0 % Lymphocytes (%) (Auto) 4.9 L 10.0-50.0 % Monocytes (%) (Auto) 4.6 0.0-12.0 % Eosinophils (%) (Auto) 0.0 0.0-7.0 % Basophils (%) (Auto) 0.2 0.0-2.0 % Neutrophils # (Auto) 6.7 1.6-8.6 10 ^3/uL Lymphocytes # (Auto) 0.4 0.4-5.4 10 ^3/uL Monocytes # (Auto) 0.3 0-1.3 10 ^3/uL Eosinophils # (Auto) 0 0-0.8 10 ^3/uL Basophils # (Auto) 0 0-0.2 10 ^3/uL Nucleated Red Blood Cells 0.0 % Sodium Level 141 136-145 mmol/L Potassium Level 4.8 3.5-5.1 mmol/L Chloride Level 102 98-107 mmol/L Carbon Dioxide Level 27 20-31 mmol/L Anion Gap 12 5-15 Blood Urea Nitrogen 21 9-23 mg/dL Creatinine 0.94 0.550-1.02 mg/dL Glomerular Filtration Rate Calc 63 >90 mL/min BUN/Creatinine Ratio 22.3 H 10.0-20.0 Serum Glucose 196 H 74-106 mg/dL Serum Osmolality 301 H 278-298 mOsm/kg Calcium Level 10.4 8.7-10.4 mg/dL Total Bilirubin 0.5 0.2-1.0 mg/dL Aspartate Amino Transferase (AST) 23 13-40 U/L Alanine Aminotransferase (ALT) 16 7-40 U/L Alkaline Phosphatase 51 46-116 U/L Total Protein 7.1 5.7-8.2 g/dL Albumin 4.5 3.2-4.8 g/dL Test 05/10/25 09:55 05/10/25 09:26 Range/Units Urine Color Light-yellow Yellow Urine Clarity Clear Clear Urine pH 5.5 5.0-9.0 Urine Specific [place] 1.017 1.001-1.035 Urine Protein Negative Negative Urine Ketones Negative Negative Urine Blood Negative Negative /uL Urine Nitrite Negative Negative Urine Bilirubin Negative Negative Urine Urobilinogen Normal Negative mg/dL Urine Leukocyte Esterase Trace Negative /uL Urine RBC 1 0 - 4 /hpf Urine Microscopic WBC 2 0-5 /HPF Urine Squamous Epithelial Cells Few <5 /hpf Urine Bacteria None seen None Seen /hpf Urine Osmolality 452 mOsm/kg Urine Creatinine 60.46 30.0-125.0 mg/dL Urine Protein/Creatinine Ratio 0.17 Urine Sodium 80 40-220 mmol/L Urine Potassium 54 12-62 mmol/L Urine Glucose Normal Normal mg/dL Urine Total Protein 10.3 1-14 mg/dL Urine Opiates Screen Neg NEGATIVE Urine Fentanyl Screen Neg NEGATIVE Urine Barbiturates Screen Neg NEGATIVE Urine Phencyclidine Screen Neg NEGATIVE Urine Amphetamines Screen Neg NEGATIVE Urine Benzodiazepines Screen Neg NEGATIVE Urine Cocaine Screen Neg NEGATIVE Urine Cannabinoids Screen Neg NEGATIVE Creatine Kinase 199 H 34-145 U/L Assessment Sinus bradycardia without atrioventricular blocks or pauses Rule out structural heart disease Hypertension BOLIVAR on CKD Hyperkalemia, resolved Hypomagnesemia Type 2 diabetes mellitus ?Dementia Plan/Recommendation We will continue with the following plan/recommendations (Dr. Jacobsen): Case discussed with . We will proceed with obtaining a transthoracic echocardiogram to evaluate cardiac function. engine monitor reviewed. Episodes of sinus bradycardia noted on engine monitor. No pauses or atri oventricular blocks noted. No indications for permanent pacemaker at this time. In the meantime, avoid AV salo blocking agents. It is worth noting that the patient is prescribed quetiapine in the outpatient setting which can cause bradycardia. Unable to verify with the patient if she is taking her prescribed medications. Consider medication induced bradycardia. Recommend to continue with close cardiac surveillance and notify cardiology team immediately for any ECG changes. Thank you for allowing us to care for this patient. Please call with any questions or concerns. Critical care time spent: 44 minutes This medical document was created using an electronic medical record system with voice recognition software and computerized dictation system. Although this document has been carefully reviewed, there might still be some phonetic and typographical errors. Occasional wrong-word or ``sound-alike substitutions may have occurred due to the inherent limitations of voice recognition software. These areas are purely typographical due to imperfections of the software programs and do not reflect any compromise in the patient's medical care. Please read the chart carefully and recognize, using context, where these substitutions have occurred. Plan discussed with: Patient, Other (Bedside RN) NYHA Physical activity limitations: NA Date of Service: May 12, 2025 Billing Provider: IRASEMA DAVIS Cardiology Common Codes: [id number] INP/OBS CARE (High) Cardiology Consultation Codes: [id number] CONSULT <45MIN IRASEMA DAVIS May 12, 2025 11:28
[2025-05-12] MEDS: MAGNESIUM SULFATE 1GM/100ML 100 ML IV SCH (15:13)
[2025-05-12 20:00] VITALS: PULSE 80
[2025-05-12 21:00] VITALS: BP 110/42; PULSE 69; RESP 17; TEMP 98.1; O2SAT 97
[2025-05-13 05:00] VITALS: BP 133/69; PULSE 72; RESP 17; TEMP 98; O2SAT 98
[2025-05-13 08:00] VITALS: PULSE 63
[2025-05-13 09:00] VITALS: BP 120/71; PULSE 69; RESP 18; TEMP 97.4; O2SAT 97
--- NOTE | 2025-05-13 10:54 | DVHPN2 ---
Reviewed: Care Plan, H&P Changes from previous H/P or p: No Changes General: Per HPI Eyes: No Pain, No Vision change, No Conjunctivae inflammation, No Eyelid inflammation, No Other, No Redness ENT: No Ear pain, No Ear discharge, No Nose pain, No Nose discharge, No Nose congestion, No Mouth pain, No Mouth swelling, No Throat pain, No Throat swelling, No Other Cardiovascular: No Chest Pain, No Palpitations, No Orthopnea, No Paroxysmal Noc. Dyspnea, No Edema, No Lt Headedness, No Other Respiratory: No Cough, No Dry, No Shortness of breath, No SOB with excertion, No Wheezing, No Hemoptysis, No Pleuritic Pain, No Sputum, No Other Gastrointestinal: No Nausea, No Vomiting, No Abdominal Pain, No Diarrhea, No Constipation, No Melena, No Hematochezia, No Other Genitourinary: No Dysuria, No Frequency, No Incontinence, No Hematuria, No Retention, No Other Musculoskeletal: No other, No neck pain, No shoulder pain, No arm pain, No back pain, No hand pain, No leg pain, No foot pain Skin: No Rash, No Lesions, No Jaundice, No Bruising, No Other Objective Vitals Vital Signs Date Time Temp Pulse Resp B/P (MAP) Pulse Ox O2 Delivery O2 Flow Rate FiO2 05/13/25 10:06 120/71 05/13/25 09:00 97.4 69 18 97 97.4 05/13/25 08:30 Room Air* 0 21 Intake/Output Intake and Output 05/13/25 07:00 Intake Total 700 ml Balance 700 ml Intake Oral 700 ml # Voids 6 General Appearance: Alert, Oriented X3, Cooperative Cardiovascular: Regular rate, Normal S1, Normal S2 Medications Current Medications Medications Dose Ordered Sig/Heena Route Start Time Stop Time Status Last Admin Dose Admin Amlodipine Besylate 5 mg DAILY PO 05/11/25 10:00 05/13/25 10:06 5 MG Hydralazine HCl 10 mg Q6HP PRN IV 05/10/25 14:00 05/10/25 22:20 10 MG Atorvastatin Calcium 10 mg HS PO 05/10/25 22:00 05/12/25 21:23 10 MG Diagnostic Test (Pha) 1 strip ACHS 05/10/25 17:00 05/13/25 06:24 1 STRIP Insulin Human Regular HS SC 05/10/25 22:00 05/12/25 21:24 3 UNITS Insulin Human Regular AC SC 05/10/25 17:00 05/13/25 06:23 3 UNITS Dextrose 50 ml UD PRN IV 05/10/25 14:00 Sodium Chloride 10 ml Q8HR IV 05/10/25 14:00 05/13/25 05:38 10 ML Acetaminophen/ Hydrocodone Bitart 1 tab Q4HP PRN PO 05/10/25 14:00 05/10/25 18:24 1 TAB Ondansetron HCl 4 mg Q4HP PRN IV 05/10/25 14:00 05/11/25 09:54 4 MG Docusate Sodium 100 mg BIDPRN PRN PO 05/10/25 14:00 Acetaminophen 650 mg Q6HP PRN PO 05/10/25 14:00 Nitroglycerin 0.4 mg Q5MINP PRN SL 05/10/25 14:00 Morphine Sulfate 2 mg Q30M PRN IV 05/10/25 14:00 Alprazolam 0.5 mg Q8HPRN PRN PO 05/10/25 15:30 05/11/25 12:14 0.5 MG Olanzapine 5 mg DAILY PO 05/12/25 10:00 05/13/25 10:06 5 MG Haloperidol Lactate 5 mg Q6HP PRN IM 05/11/25 14:00 Laboratory Results Laboratory Tests 05/11/25 05:32 Urinalysis Test 05/10/25 09:55 Urine Color Light-yellow (Yellow) Urine Clarity Clear (Clear) Urine pH 5.5 (5.0-9.0) Urine Specific [place] 1.017 (1.001-1.035) Urine Protein Negative (Negative) Urine Ketones Negative (Negative) Urine Blood Negative /uL (Negative) Urine Nitrite Negative (Negative) Urine Bilirubin Negative (Negative) Urine Urobilinogen Normal mg/dL (Negative) Urine Leukocyte Esterase Trace /uL (Negative) Urine RBC 1 /hpf (0 - 4) Urine Microscopic WBC 2 /HPF (0-5) Urine Squamous Epithelial Cells Few /hpf (<5) Urine Bacteria None seen /hpf (None Seen) Urine Osmolality 452 mOsm/kg Urine Creatinine 60.46 mg/dL (30.0-125.0) Urine Protein/Creatinine Ratio 0.17 Urine Sodium 80 mmol/L (40-220) Urine Potassium 54 mmol/L (12-62) Urine Glucose Normal mg/dL (Normal) Urine Total Protein 10.3 mg/dL (1-14) Labs and/or images reviewed: Labs reviewed by me, Image(s) reviewed by me Assessment/Plan Assessment/Plan The patient is a 74 years old female with past medical history of anxiety, diabetes mellitus, hypertension, and hyperlipidemia who presented to [facility] ED for evaluation of altered mental status. As reported by EMS, patient called complaining of presyncopal episode, frequent falls, and slight chest pain. When EMS arrived on the scene, patient was pacing outside her house, locked the doors of her home with poor insight, thought process, hopelessness, paranoid, severe anxiety, and speaking mostly about babies being killed and stolen. Patient has rapid speech, talking about some female trying to steal her home, pulled out her master's degrees that stuffed in her socks, states she carries around as people are trying to steal it. 05/11: Pending psych eval. Start olanzapine 5 daily, Haldol 5 intramuscular q.6 for agitation. Sitter at bedside. Pending psych eval. Social consult for home safety eval and for identification. 05/12/2025: continue with current care, per psych, pt is on 5150 hold and not safe to be discharged, may need request to transfer to psych facility Diagnosis: acute toxic metabolic encephalopathy delirium possible dementia possible acute psychosis possible history of anxiety, diabetes mellitus, hypertension, hyperlipidemia Plan: Olanzapine 5 mg Haldol 5 mg intramuscular q.6 PRN for agitation Psychiatry consult Hold off anxiolytics unless absolutely needed Amlodipine 5 Lipitor 10 Moderate sliding scale insulin a.c. HS Zofran PRN for nausea Plan discussed with: Patient, Other (nursing staff) Date of Service: May 12, 2025 Billing Provider: TANYA LANIER DO Common Visit Codes: [id number] INP/OBS CARE(HIGH) TANYA LANIER DO May 13, 2025 10:54
[2025-05-13 13:00] VITALS: BP 105/77; PULSE 88; RESP 20; TEMP 97; O2SAT 96
--- NOTE | 2025-05-13 14:12 | DVHPN2 ---
Consult Progress Note Subjective Patient reports: Other (Altered) Objective vital signs Vital Sign Date Time Temp Pulse Resp B/P (MAP) Pulse Ox O2 Delivery O2 Flow Rate FiO2 05/13/25 10:06 120/71 05/13/25 09:00 97.4 69 18 97 97.4 05/13/25 08:30 Room Air* 0 21 Total Intake and Output 05/12/25 05/12/25 05/13/25 15:00 23:00 07:00 Intake Total 500 ml 200 ml Balance 500 ml 200 ml medications Current Medications Medications Dose Ordered Sig/Heena Route Start Time Stop Time Status Last Admin Dose Admin Amlodipine Besylate 5 mg DAILY PO 05/11/25 10:00 05/13/25 10:06 5 MG Hydralazine HCl 10 mg Q6HP PRN IV 05/10/25 14:00 05/10/25 22:20 10 MG Atorvastatin Calcium 10 mg HS PO 05/10/25 22:00 05/12/25 21:23 10 MG Diagnostic Test (Pha) 1 strip ACHS 05/10/25 17:00 05/13/25 11:41 1 STRIP Insulin Human Regular HS SC 05/10/25 22:00 05/12/25 21:24 3 UNITS Insulin Human Regular AC SC 05/10/25 17:00 05/13/25 11:44 6 UNITS Dextrose 50 ml UD PRN IV 05/10/25 14:00 Sodium Chloride 10 ml Q8HR IV 05/10/25 14:00 05/13/25 05:38 10 ML Acetaminophen/ Hydrocodone Bitart 1 tab Q4HP PRN PO 05/10/25 14:00 05/10/25 18:24 1 TAB Ondansetron HCl 4 mg Q4HP PRN IV 05/10/25 14:00 05/11/25 09:54 4 MG Docusate Sodium 100 mg BIDPRN PRN PO 05/10/25 14:00 Acetaminophen 650 mg Q6HP PRN PO 05/10/25 14:00 Nitroglycerin 0.4 mg Q5MINP PRN SL 05/10/25 14:00 Morphine Sulfate 2 mg Q30M PRN IV 05/10/25 14:00 Alprazolam 0.5 mg Q8HPRN PRN PO 05/10/25 15:30 05/11/25 12:14 0.5 MG Olanzapine 5 mg DAILY PO 05/12/25 10:00 05/13/25 10:06 5 MG Haloperidol Lactate 5 mg Q6HP PRN IM 05/11/25 14:00 Examination: CVS:Abnormal (Telemetry reviewed, consistent with sinus bradycardia 57 beats per minute. Overnight noted heart rate of 41. No AV blocks/pauses on review ) laboratory and microbiology Laboratory Tests 05/11/25 05:32 Test 05/11/25 05:32 Range/Units Serum Glucose 196 H 74-106 mg/dL Problem List/Assessment/Plan Problem List/Assessment/Plan Sinus bradycardia without atrioventricular blocks or pauses Rule out structural heart disease Hypertension BOLIVAR on CKD Hyperkalemia, resolved Hypomagnesemia Type 2 diabetes mellitus ?Dementia Plan/Recommendation We will continue with the following plan/recommendations (Dr. Jacobsen): Case discussed with . Echo with normal EF 65-7%. No significant valvular structural abnormalities. store team leader reviewed. Episodes of sinus bradycardia noted on electrical tester battery. No pauses or atrioventricular blocks noted. No indications for permanent pacemaker at this time. In the meantime, avoid AV salo blocking agents. It is worth noting that the patient is prescribed quetiapine in the outpatient setting which can cause bradycardia. Unable to verify with the patient if she is taking her prescribed medications. Consider medication induced bradycardia. Recommend to continue with close cardiac surveillance and notify cardiology team immediately for any ECG changes. Outpatient event monitoring. Thank you for allowing us to care for this patient. Please call with any questions or concerns. No further cardiac workup indicated at this time, we will sign off. Please re-consult needed thank you. Critical care time spent: 36 minutes Plan discussed with: Patient Date of Service: May 13, 2025 Billing Provider: KALEB MIR Common Visit Codes: [id number] INP/OBS CARE(HIGH), [id number] CARE 30-74 MIN KALEB MIR May 13, 2025 14:12
--- NOTE | 2025-05-13 14:14 | DVHSR ---
APPROVED REPORT EXAM: Two-dimensional and M-mode echocardiogram with Doppler and color Doppler. Blood Pressure: 119/79 mmHg INDICATION evaluate cardiac function RISK FACTORS Height: 62, Weight: 117 DIMENSIONS LVDd 3.8 (3.8-5.7cm) LA (2D) 4.0 (1.9-4.0cm) Aortic Root 3.5 (2.0-3.7cm) LVDs 1.9 (2.5-4.0cm) LA (MM) (1.9-4.0cm) Aortic Cusp Exc 1.5 (1.5-2.0cm) EF (%) 70.0 (55-70%) Rt. Atrium 2.6 (1.9-4.0cm) Asc. Aorta 3.3 cm IVSd 1.0 (0.7-1.1cm) RV (D) 3.2 (1.8-2.4cm) PWd 1.0 (0.7-1.1cm) Mitral Valve Mitral Mitral Stenosis E wave 0.58m/s MV Mean GR. mmHg A wave 1.04m/s MV Peak GR. mmHg E/A ratio 0.6 2D MVA cm2 DECEL Time 269ms PRESS 1/2 Time ms Aortic Valve Aortic Valve Aortic Stenosis V1 1.07m/s AO Mean GR. 8mmHg V2 2.02m/s AO Peak GR. 16mmHg LVOT Diameter 2.0 (1.8-2.4cm) Doppler DANTE 1.66cm2 Pulmonic Valve V2 0.92m/s Conclusion 1)Normal right and left ventricle systolic function with estimated LV ejection fraction of 65-70%. There is a normal LV wall motion. LV diastolic function is normal 2)Trace aortic and mitral regurgitation 3)Mild tricuspid regurgitation
[2025-05-13 20:00] VITALS: PULSE 85
[2025-05-13 21:00] VITALS: BP 146/89; PULSE 97; RESP 17; TEMP 97.6; O2SAT 98
[2025-05-14] VITALS (8 sets, daily range): BP systolic 107–163; BP diastolic 59–86; PULSE 61–115; RESP 18–19; TEMP 96.8–98.1; O2SAT 97–98
--- NOTE | 2025-05-14 12:17 | DVHPN2 ---
Reviewed: Care Plan, H&P, Labs, Medications, Previous Orders, Radiology Changes from previous H/P or p: No Changes General: Per HPI Eyes: No Pain, No Vision change, No Conjunctivae inflammation, No Eyelid inflammation, No Other, No Redness ENT: No Ear pain, No Ear discharge, No Nose pain, No Nose discharge, No Nose congestion, No Mouth pain, No Mouth swelling, No Throat pain, No Throat swelling, No Other Cardiovascular: No Chest Pain, No Palpitations, No Orthopnea, No Paroxysmal Noc. Dyspnea, No Edema, No Lt Headedness, No Other Respiratory: No Cough, No Dry, No Shortness of breath, No SOB with excertion, No Wheezing, No Hemoptysis, No Pleuritic Pain, No Sputum, No Other Gastrointestinal: No Nausea, No Vomiting, No Abdominal Pain, No Diarrhea, No Constipation, No Melena, No Hematochezia, No Other Genitourinary: No Dysuria, No Frequency, No Incontinence, No Hematuria, No Retention, No Other Musculoskeletal: No other, No neck pain, No shoulder pain, No arm pain, No back pain, No hand pain, No leg pain, No foot pain Skin: No Rash, No Lesions, No Jaundice, No Bruising, No Other Objective Vitals Vital Signs Date Time Temp Pulse Resp B/P (MAP) Pulse Ox O2 Delivery O2 Flow Rate FiO2 05/14/25 09:44 137/60 05/14/25 05:00 97.0 65 18 97 97.0 05/13/25 19:52 Room Air* 0 21 Intake/Output Intake and Output 05/14/25 07:00 Intake Total 3120 ml Balance 3120 ml Intake Oral 3120 ml # Voids 8 General Appearance: Alert, Oriented X3, Cooperative HEENT: Atraumatic Cardiovascular: Regular rate, Normal S1, Normal S2 Abdomen: Normal bowel sounds, Soft Medications Current Medications Medications Dose Ordered Sig/Heena Route Start Time Stop Time Status Last Admin Dose Admin Amlodipine Besylate 5 mg DAILY PO 05/11/25 10:00 05/14/25 09:44 5 MG Hydralazine HCl 10 mg Q6HP PRN IV 05/10/25 14:00 05/10/25 22:20 10 MG Atorvastatin Calcium 10 mg HS PO 05/10/25 22:00 05/13/25 21:25 10 MG Diagnostic Test (Pha) 1 strip ACHS 05/10/25 17:00 05/14/25 11:11 1 STRIP Insulin Human Regular HS SC 05/10/25 22:00 05/13/25 21:48 6 UNITS Insulin Human Regular AC SC 05/10/25 17:00 05/14/25 11:10 5 UNITS Dextrose 50 ml UD PRN IV 05/10/25 14:00 Sodium Chloride 10 ml Q8HR IV 05/10/25 14:00 05/14/25 06:00 10 ML Acetaminophen/ Hydrocodone Bitart 1 tab Q4HP PRN PO 05/10/25 14:00 05/10/25 18:24 1 TAB Ondansetron HCl 4 mg Q4HP PRN IV 05/10/25 14:00 05/11/25 09:54 4 MG Docusate Sodium 100 mg BIDPRN PRN PO 05/10/25 14:00 Acetaminophen 650 mg Q6HP PRN PO 05/10/25 14:00 Nitroglycerin 0.4 mg Q5MINP PRN SL 05/10/25 14:00 Morphine Sulfate 2 mg Q30M PRN IV 05/10/25 14:00 Alprazolam 0.5 mg Q8HPRN PRN PO 05/10/25 15:30 05/14/25 03:54 0.5 MG Olanzapine 5 mg DAILY PO 05/12/25 10:00 05/14/25 09:44 5 MG Haloperidol Lactate 5 mg Q6HP PRN IM 05/11/25 14:00 Laboratory Results Laboratory Tests 05/11/25 05:32 Urinalysis Test 05/10/25 09:55 Urine Color Light-yellow (Yellow) Urine Clarity Clear (Clear) Urine pH 5.5 (5.0-9.0) Urine Specific [place] 1.017 (1.001-1.035) Urine Protein Negative (Negative) Urine Ketones Negative (Negative) Urine Blood Negative /uL (Negative) Urine Nitrite Negative (Negative) Urine Bilirubin Negative (Negative) Urine Urobilinogen Normal mg/dL (Negative) Urine Leukocyte Esterase Trace /uL (Negative) Urine RBC 1 /hpf (0 - 4) Urine Microscopic WBC 2 /HPF (0-5) Urine Squamous Epithelial Cells Few /hpf (<5) Urine Bacteria None seen /hpf (None Seen) Urine Osmolality 452 mOsm/kg Urine Creatinine 60.46 mg/dL (30.0-125.0) Urine Protein/Creatinine Ratio 0.17 Urine Sodium 80 mmol/L (40-220) Urine Potassium 54 mmol/L (12-62) Urine Glucose Normal mg/dL (Normal) Urine Total Protein 10.3 mg/dL (1-14) Labs and/or images reviewed: Labs reviewed by me, Image(s) reviewed by me Assessment/Plan Assessment/Plan The patient is a 74 years old female with past medical history of anxiety, diabetes mellitus, hypertension, and hyperlipidemia who presented to [facility] ED for evaluation of altered mental status. As reported by EMS, patient called complaining of presyncopal episode, frequent falls, and slight chest pain. When EMS arrived on the scene, patient was pacing outside her house, locked the doors of her home with poor insight, thought process, hopelessness, paranoid, severe anxiety, and speaking mostly about babies being killed and stolen. Patient has rapid speech, talking about some female trying to steal her home, pulled out her master's degrees that stuffed in her socks, states she carries around as people are trying to steal it. 05/11: Pending psych eval. Start olanzapine 5 daily, Haldol 5 intramuscular q.6 for agitation. Sitter at bedside. Pending psych eval. Social consult for home safety eval and for identification. 05/12/2025: continue with current care, per psych, pt is on 5150 hold and not safe to be discharged, may need request to transfer to psych facility Diagnosis: acute toxic metabolic encephalopathy delirium possible dementia possible acute psychosis possible history of anxiety, diabetes mellitus, hypertension, hyperlipidemia Plan: Olanzapine 5 mg Haldol 5 mg intramuscular q.6 PRN for agitation Psychiatry consult Hold off anxiolytics unless absolutely needed Amlodipine 5 Lipitor 10 Moderate sliding scale insulin a.c. HS Zofran PRN for nausea Plan discussed with: Patient Date of Service: May 13, 2025 Billing Provider: TANYA LANIER DO Common Visit Codes: [id number] INP/OBS CARE(HIGH) TANYA LANIER DO May 14, 2025 12:17
--- NOTE | 2025-05-14 12:20 | DVHPN2 ---
Reviewed: Care Plan, H&P, Labs, Medications, Previous Orders, Radiology Changes from previous H/P or p: No Changes General: Per HPI Eyes: No Pain, No Vision change, No Conjunctivae inflammation, No Eyelid inflammation, No Other, No Redness ENT: No Ear pain, No Ear discharge, No Nose pain, No Nose discharge, No Nose congestion, No Mouth pain, No Mouth swelling, No Throat pain, No Throat swelling, No Other Cardiovascular: No Chest Pain, No Palpitations, No Orthopnea, No Paroxysmal Noc. Dyspnea, No Edema, No Lt Headedness, No Other Respiratory: No Cough, No Dry, No Shortness of breath, No SOB with excertion, No Wheezing, No Hemoptysis, No Pleuritic Pain, No Sputum, No Other Gastrointestinal: No Nausea, No Vomiting, No Abdominal Pain, No Diarrhea, No Constipation, No Melena, No Hematochezia, No Other Genitourinary: No Dysuria, No Frequency, No Incontinence, No Hematuria, No Retention, No Other Musculoskeletal: No other, No neck pain, No shoulder pain, No arm pain, No back pain, No hand pain, No leg pain, No foot pain Skin: No Rash, No Lesions, No Jaundice, No Bruising, No Other Objective Vitals Vital Signs Date Time Temp Pulse Resp B/P (MAP) Pulse Ox O2 Delivery O2 Flow Rate FiO2 05/14/25 09:44 137/60 05/14/25 05:00 97.0 65 18 97 97.0 05/13/25 19:52 Room Air* 0 21 Intake/Output Intake and Output 05/14/25 07:00 Intake Total 3120 ml Balance 3120 ml Intake Oral 3120 ml # Voids 8 General Appearance: Alert, Oriented X3, Cooperative HEENT: Atraumatic Cardiovascular: Regular rate, Normal S1, Normal S2 Abdomen: Normal bowel sounds, Soft Medications Current Medications Medications Dose Ordered Sig/Heena Route Start Time Stop Time Status Last Admin Dose Admin Amlodipine Besylate 5 mg DAILY PO 05/11/25 10:00 05/14/25 09:44 5 MG Hydralazine HCl 10 mg Q6HP PRN IV 05/10/25 14:00 05/10/25 22:20 10 MG Atorvastatin Calcium 10 mg HS PO 05/10/25 22:00 05/13/25 21:25 10 MG Diagnostic Test (Pha) 1 strip ACHS 05/10/25 17:00 05/14/25 11:11 1 STRIP Insulin Human Regular HS SC 05/10/25 22:00 05/13/25 21:48 6 UNITS Insulin Human Regular AC SC 05/10/25 17:00 05/14/25 11:10 5 UNITS Dextrose 50 ml UD PRN IV 05/10/25 14:00 Sodium Chloride 10 ml Q8HR IV 05/10/25 14:00 05/14/25 06:00 10 ML Acetaminophen/ Hydrocodone Bitart 1 tab Q4HP PRN PO 05/10/25 14:00 05/10/25 18:24 1 TAB Ondansetron HCl 4 mg Q4HP PRN IV 05/10/25 14:00 05/11/25 09:54 4 MG Docusate Sodium 100 mg BIDPRN PRN PO 05/10/25 14:00 Acetaminophen 650 mg Q6HP PRN PO 05/10/25 14:00 Nitroglycerin 0.4 mg Q5MINP PRN SL 05/10/25 14:00 Morphine Sulfate 2 mg Q30M PRN IV 05/10/25 14:00 Alprazolam 0.5 mg Q8HPRN PRN PO 05/10/25 15:30 05/14/25 03:54 0.5 MG Olanzapine 5 mg DAILY PO 05/12/25 10:00 05/14/25 09:44 5 MG Haloperidol Lactate 5 mg Q6HP PRN IM 05/11/25 14:00 Laboratory Results Laboratory Tests 05/11/25 05:32 Urinalysis Test 05/10/25 09:55 Urine Color Light-yellow (Yellow) Urine Clarity Clear (Clear) Urine pH 5.5 (5.0-9.0) Urine Specific [place] 1.017 (1.001-1.035) Urine Protein Negative (Negative) Urine Ketones Negative (Negative) Urine Blood Negative /uL (Negative) Urine Nitrite Negative (Negative) Urine Bilirubin Negative (Negative) Urine Urobilinogen Normal mg/dL (Negative) Urine Leukocyte Esterase Trace /uL (Negative) Urine RBC 1 /hpf (0 - 4) Urine Microscopic WBC 2 /HPF (0-5) Urine Squamous Epithelial Cells Few /hpf (<5) Urine Bacteria None seen /hpf (None Seen) Urine Osmolality 452 mOsm/kg Urine Creatinine 60.46 mg/dL (30.0-125.0) Urine Protein/Creatinine Ratio 0.17 Urine Sodium 80 mmol/L (40-220) Urine Potassium 54 mmol/L (12-62) Urine Glucose Normal mg/dL (Normal) Urine Total Protein 10.3 mg/dL (1-14) Assessment/Plan Assessment/Plan The patient is a 74 years old female with past medical history of anxiety, diabetes mellitus, hypertension, and hyperlipidemia who presented to [facility] ED for evaluation of altered mental status. As reported by EMS, patient called complaining of presyncopal episode, frequent falls, and slight chest pain. When EMS arrived on the scene, patient was pacing outside her house, locked the doors of her home with poor insight, thought process, hopelessness, paranoid, severe anxiety, and speaking mostly about babies being killed and stolen. Patient has rapid speech, talking about some female trying to steal her home, pulled out her master's degrees that stuffed in her socks, states she carries around as people are trying to steal it. 05/11: Pending psych eval. Start olanzapine 5 daily, Haldol 5 intramuscular q.6 for agitation. Sitter at bedside. Pending psych eval. Social consult for home safety eval and for identification. 05/12/2025: continue with current care, per psych, pt is on 5150 hold and not safe to be discharged, may need request to transfer to psych facility 05/14/2025: pt to be transferred to psych facility Diagnosis: acute toxic metabolic encephalopathy delirium possible dementia possible acute psychosis possible history of anxiety, diabetes mellitus, hypertension, hyperlipidemia Plan: Olanzapine 5 mg Haldol 5 mg intramuscular q.6 PRN for agitation Psychiatry consult Hold off anxiolytics unless absolutely needed Amlodipine 5 Lipitor 10 Moderate sliding scale insulin a.c. HS Zofran PRN for nausea Plan discussed with: Patient Date of Service: May 14, 2025 Billing Provider: TANYA LANIER DO Common Visit Codes: [id number] INP/OBS CARE(HIGH) TANYA LANIER DO May 14, 2025 12:20
[2025-05-14] MEDS: DOCUSATE SOD 100 MG CAP PO PRN (17:20)
[2025-05-15] VITALS (7 sets, daily range): BP systolic 134–143; BP diastolic 73–83; PULSE 63–101; RESP 16–19; TEMP 97.6–98.1; O2SAT 96–98
--- NOTE | 2025-05-15 11:04 | DVHPN2 ---
Reviewed: Care Plan, H&P, Labs, Medications, Previous Orders, Radiology Changes from previous H/P or p: No Changes General: Per HPI Eyes: No Pain, No Vision change, No Conjunctivae inflammation, No Eyelid inflammation, No Other, No Redness ENT: No Ear pain, No Ear discharge, No Nose pain, No Nose discharge, No Nose congestion, No Mouth pain, No Mouth swelling, No Throat pain, No Throat swelling, No Other Cardiovascular: No Chest Pain, No Palpitations, No Orthopnea, No Paroxysmal Noc. Dyspnea, No Edema, No Lt Headedness, No Other Respiratory: No Cough, No Dry, No Shortness of breath, No SOB with excertion, No Wheezing, No Hemoptysis, No Pleuritic Pain, No Sputum, No Other Gastrointestinal: No Nausea, No Vomiting, No Abdominal Pain, No Diarrhea, No Constipation, No Melena, No Hematochezia, No Other Genitourinary: No Dysuria, No Frequency, No Incontinence, No Hematuria, No Retention, No Other Musculoskeletal: No other, No neck pain, No shoulder pain, No arm pain, No back pain, No hand pain, No leg pain, No foot pain Skin: No Rash, No Lesions, No Jaundice, No Bruising, No Other Objective Vitals Vital Signs Date Time Temp Pulse Resp B/P (MAP) Pulse Ox O2 Delivery O2 Flow Rate FiO2 05/15/25 10:19 139/73 05/15/25 09:09 98.1 82 16 96 98.1 05/14/25 20:00 Room Air* 0 21 Intake/Output Intake and Output 05/15/25 07:00 Intake Total 1250 ml Balance 1250 ml Intake Oral 1250 ml # Voids 5 Exam GEN: Healthy appearing, well-developed, NAD. HEENT: NC/AT; MMM. CV: RRR, no m/r/g. LUNGS: CTAB, no w/r/c. ABD: Soft, NT/ND, NBS, no masses or organomegaly. EXT: skin Warm, well perfused. no rashes. No clubbing, cyanosis, or edema. NEURO: Ambulating with no limitations. No focal deficits. Psych: Tangential speech, delusional thoughts, possible auditory hallucination, alert oriented to self only. General Appearance: Alert, Oriented X3, Cooperative HEENT: Atraumatic Cardiovascular: Regular rate, Normal S1, Normal S2 Abdomen: Normal bowel sounds, Soft Medications Current Medications Medications Dose Ordered Sig/Heena Route Start Time Stop Time Status Last Admin Dose Admin Amlodipine Besylate 5 mg DAILY PO 05/11/25 10:00 05/15/25 10:19 5 MG Hydralazine HCl 10 mg Q6HP PRN IV 05/10/25 14:00 05/14/25 17:19 10 MG Atorvastatin Calcium 10 mg HS PO 05/10/25 22:00 05/14/25 21:16 10 MG Diagnostic Test (Pha) 1 strip ACHS 05/10/25 17:00 05/15/25 05:55 1 STRIP Insulin Human Regular HS SC 05/10/25 22:00 05/14/25 21:27 4 UNITS Insulin Human Regular AC SC 05/10/25 17:00 05/15/25 06:24 3 UNITS Dextrose 50 ml UD PRN IV 05/10/25 14:00 Sodium Chloride 10 ml Q8HR IV 05/10/25 14:00 05/15/25 05:55 10 ML Acetaminophen/ Hydrocodone Bitart 1 tab Q4HP PRN PO 05/10/25 14:00 05/10/25 18:24 1 TAB Ondansetron HCl 4 mg Q4HP PRN IV 05/10/25 14:00 05/11/25 09:54 4 MG Docusate Sodium 100 mg BIDPRN PRN PO 05/10/25 14:00 05/14/25 17:20 100 MG Acetaminophen 650 mg Q6HP PRN PO 05/10/25 14:00 Nitroglycerin 0.4 mg Q5MINP PRN SL 05/10/25 14:00 Morphine Sulfate 2 mg Q30M PRN IV 05/10/25 14:00 Alprazolam 0.5 mg Q8HPRN PRN PO 05/10/25 15:30 05/14/25 21:16 0.5 MG Olanzapine 5 mg DAILY PO 05/12/25 10:00 05/15/25 10:19 5 MG Haloperidol Lactate 5 mg Q6HP PRN IM 05/11/25 14:00 Laboratory Results Laboratory Tests 05/11/25 05:32 Urinalysis Test 05/10/25 09:55 Urine Color Light-yellow (Yellow) Urine Clarity Clear (Clear) Urine pH 5.5 (5.0-9.0) Urine Specific [place] 1.017 (1.001-1.035) Urine Protein Negative (Negative) Urine Ketones Negative (Negative) Urine Blood Negative /uL (Negative) Urine Nitrite Negative (Negative) Urine Bilirubin Negative (Negative) Urine Urobilinogen Normal mg/dL (Negative) Urine Leukocyte Esterase Trace /uL (Negative) Urine RBC 1 /hpf (0 - 4) Urine Microscopic WBC 2 /HPF (0-5) Urine Squamous Epithelial Cells Few /hpf (<5) Urine Bacteria None seen /hpf (None Seen) Urine Osmolality 452 mOsm/kg Urine Creatinine 60.46 mg/dL (30.0-125.0) Urine Protein/Creatinine Ratio 0.17 Urine Sodium 80 mmol/L (40-220) Urine Potassium 54 mmol/L (12-62) Urine Glucose Normal mg/dL (Normal) Urine Total Protein 10.3 mg/dL (1-14) Labs and/or images reviewed: Labs reviewed by me, Image(s) reviewed by me Assessment/Plan Assessment/Plan The patient is a 74 years old female with past medical history of anxiety, diabetes mellitus, hypertension, and hyperlipidemia who presented to [facility] ED for evaluation of altered mental status. As reported by EMS, patient called complaining of presyncopal episode, frequent falls, and slight chest pain. When EMS arrived on the scene, patient was pacing outside her house, locked the doors of her home with poor insight, thought process, hopelessness, paranoid, severe anxiety, and speaking mostly about babies being killed and stolen. Patient has rapid speech, talking about some female trying to steal her home, pulled out her master's degrees that stuffed in her socks, states she carries around as people are trying to steal it. 05/11: Pending psych eval. Start olanzapine 5 daily, Haldol 5 intramuscular q.6 for agitation. Sitter at bedside. Pending psych eval. Social consult for home safety eval and for identification. 05/12/2025: continue with current care, per psych, pt is on 5150 hold and not safe to be discharged, may need request to transfer to psych facility 05/14/2025: pt to be transferred to psych facility 05/15: waiting psych transfer Diagnosis: acute toxic metabolic encephalopathy delirium possible dementia possible acute psychosis possible history of anxiety, diabetes mellitus, hypertension, hyperlipidemia Plan: Olanzapine 5 mg Haldol 5 mg intramuscular q.6 PRN for agitation Psychiatry consult Hold off anxiolytics unless absolutely needed Amlodipine 5 Lipitor 10 Moderate sliding scale insulin a.c. HS Zofran PRN for nausea Tele Full code Plan discussed with: Patient Date of Service: May 15, 2025 Billing Provider: CECY LANGLEY MD Common Visit Codes: [id number] INP/OBS CARE(MOD) CECY LANGLEY MD May 15, 2025 11:04
[2025-05-15] MEDS: HALOPERIDOL LACTATE 5 MG/ML INJ VIAL IM PRN (16:58)
[2025-05-16] VITALS (7 sets, daily range): BP systolic 130–185; BP diastolic 72–82; PULSE 73–92; RESP 16–17; TEMP 97.6–98; O2SAT 97–100
--- NOTE | 2025-05-16 09:39 | DVHDS2 ---
Discharge Summary Date of Admission May 10, 2025 at 13:55 Date of Discharge: May 16, 2025 Labs/Diagnostic Data: Laboratory Results Test 05/16/25 06:02 05/12/25 09:40 05/11/25 13:58 05/11/25 05:32 POC Glucose 165 mg/dl (70-106) Hemoglobin A1c 7.7 % A1C (<5.7) Magnesium Level 1.4 mg/dL (1.6-2.6) Triglycerides Level 103 mg/dL (< 150) Cholesterol Level 162 mg/dL (< 200) LDL Cholesterol 55 mg/dL (< 100) HDL Cholesterol 77 mg/dL (40-59) Free Thyroxine (T4) Calculated 1.50 ng/dL (0.89-1.76) Free Triiodothyronine (T3) pg/mL 3.44 pg/mL (2.3-4.2) Ammonia < 10 umol/L (11-32) Thyroid Stimulating Hormone (TSH) 0.50 uIU/mL (0.55-4.78) White Blood Count 7.5 10^3/uL (4.4-10.8) Red Blood Count 4.36 10^6/uL (4.0-5.20) Hemoglobin 13.9 g/dL (12.2-16.2) Hematocrit 41.1 % (36.0-46.0) Mean Corpuscular Volume 94.4 fL (80.0-100.0) Mean Corpuscular Hemoglobin 32.0 pg (28.0-32.0) Mean Corpuscular Hemoglobin Concent 33.9 g/dL (32.0-36.0) Red Cell Distribution Width 13.1 % (11.8-14.3) Platelet Count 243 10^3/uL (140-450) Mean Platelet Volume 7.4 fL (6.9-10.8) Neutrophils (%) (Auto) 90.3 % (37.0-80.0) Lymphocytes (%) (Auto) 4.9 % (10.0-50.0) Monocytes (%) (Auto) 4.6 % (0.0-12.0) Eosinophils (%) (Auto) 0.0 % (0.0-7.0) Basophils (%) (Auto) 0.2 % (0.0-2.0) Neutrophils # (Auto) 6.7 10 ^3/uL (1.6-8.6) Lymphocytes # (Auto) 0.4 10 ^3/uL (0.4-5.4) Monocytes # (Auto) 0.3 10 ^3/uL (0-1.3) Eosinophils # (Auto) 0 10 ^3/uL (0-0.8) Basophils # (Auto) 0 10 ^3/uL (0-0.2) Nucleated Red Blood Cells 0.0 % Sodium Level 141 mmol/L (136-145) Potassium Level 4.8 mmol/L (3.5-5.1) Chloride Level 102 mmol/L (98-107) Carbon Dioxide Level 27 mmol/L (20-31) Anion Gap 12 (5-15) Blood Urea Nitrogen 21 mg/dL (9-23) Creatinine 0.94 mg/dL (0.550-1.02) Glomerular Filtration Rate Calc 63 mL/min (>90) BUN/Creatinine Ratio 22.3 (10.0-20.0) Serum Glucose 196 mg/dL (74-106) Serum Osmolality 301 mOsm/kg (278-298) Calcium Level 10.4 mg/dL (8.7-10.4) Total Bilirubin 0.5 mg/dL (0.2-1.0) Aspartate Amino Transferase (AST) 23 U/L (13-40) Alanine Aminotransferase (ALT) 16 U/L (7-40) Alkaline Phosphatase 51 U/L (46-116) Total Protein 7.1 g/dL (5.7-8.2) Albumin 4.5 g/dL (3.2-4.8) Test 05/10/25 09:55 05/10/25 09:26 Urine Color Light-yellow (Yellow) Urine Clarity Clear (Clear) Urine pH 5.5 (5.0-9.0) Urine Specific [place] 1.017 (1.001-1.035) Urine Protein Negative (Negative) Urine Ketones Negative (Negative) Urine Blood Negative /uL (Negative) Urine Nitrite Negative (Negative) Urine Bilirubin Negative (Negative) Urine Urobilinogen Normal mg/dL (Negative) Urine Leukocyte Esterase Trace /uL (Negative) Urine RBC 1 /hpf (0 - 4) Urine Microscopic WBC 2 /HPF (0-5) Urine Squamous Epithelial Cells Few /hpf (<5) Urine Bacteria None seen /hpf (None Seen) Urine Osmolality 452 mOsm/kg Urine Creatinine 60.46 mg/dL (30.0-125.0) Urine Protein/Creatinine Ratio 0.17 Urine Sodium 80 mmol/L (40-220) Urine Potassium 54 mmol/L (12-62) Urine Glucose Normal mg/dL (Normal) Urine Total Protein 10.3 mg/dL (1-14) Urine Opiates Screen Neg (NEGATIVE) Urine Fentanyl Screen Neg (NEGATIVE) Urine Barbiturates Screen Neg (NEGATIVE) Urine Phencyclidine Screen Neg (NEGATIVE) Urine Amphetamines Screen Neg (NEGATIVE) Urine Benzodiazepines Screen Neg (NEGATIVE) Urine Cocaine Screen Neg (NEGATIVE) Urine Cannabinoids Screen Neg (NEGATIVE) Creatine Kinase 199 U/L (34-145) Other Laboratory Tests 05/11/25 05:32 Brief Hx & Hospital Course: The patient is a 74 years old female with past medical history of anxiety, diabetes mellitus, hypertension, and hyperlipidemia who presented to [facility] ED for evaluation of altered mental status. As reported by EMS, patient called complaining of presyncopal episode, frequent falls, and slight chest pain. When EMS arrived on the scene, patient was pacing outside her house, locked the doors of her home with poor insight, thought process, hopelessness, paranoid, severe anxiety, and speaking mostly about babies being killed and stolen. Patient has rapid speech, talking about some female trying to steal her home, pulled out her master's degrees that stuffed in her socks, states she carries around as people are trying to steal it. 05/11: Pending psych eval. Start olanzapine 5 daily, Haldol 5 intramuscular q.6 for agitation. Sitter at bedside. Pending psych eval. Social consult for home safety eval and for identification. 05/12/2025: continue with current care, per psych, pt is on 5150 hold and not safe to be discharged, may need request to transfer to psych facility 05/14/2025: pt to be transferred to psych facility 05/15: waiting psych transfer 05/16: still waiting for psych facility. patient regardless needs psychiatry services, VS stable, tolerating po, doing well. will start discharge, pending placement. Diagnosis: acute encephalopathy, due to below acute psychosis likely, with auditory hallucinations delusional disorder, with acute psychotic episode possible delirium possible dementia possible history of anxiety, diabetes mellitus, hypertension, hyperlipidemia plan: - transfer to psych once placed - continue medications per MAR Condition at Discharge: Fair Final Diagnosis/Problems List acute encephalopathy, due to below acute psychosis likely, with auditory hallucinations delusional disorder, with acute psychotic episode possible delirium possible dementia possible history of anxiety, diabetes mellitus, hypertension, hyperlipidemia Discharge Disposition: Psychiatric Facility Discharge Instruct/Medications Miscellaneous Medications Acetaminophen (Mapap), (Reported) Baclofen (Baclofen), (Reported) Hydroxyzine Pamoate (Hydroxyzine Pamoate), (Reported) Ibuprofen Micronized (Ibuprofen), (Reported) Lisinopril (Lisinopril), (Reported) [place] Carbonate ([place] Carbonate), (Reported) Metformin Hydrochloride (Metformin Hcl), (Reported) Oxybutynin Chloride (Oxybutynin Chloride), (Reported) Pioglitazone Hydrochloride (Pioglitazone Hcl), (Reported) Simvastatin (Simvastatin), (Reported) Sitagliptin Phosphate (Januvia), (Reported) Discharge Statement: "Patient was advised to return to the ER or call 911 if any headaches, dizziness, shortness of breath, chest pain, abdominal pain, bleeding, fevers, or worsening of medical condition. Patient was counseled about treatment plan, medications, possible side effects, patientverbalized understanding. All questions were answered to the best of my ability. This discharge took greater then 30 minutes in planning, reviewing documentation, counseling the patient, and discussing with other team members." ASSESSMENT ASSESSMENT Assessment Date of Service: May 16, 2025 Billing Provider: CECY LANGLEY MD Common Visit Codes: [id number] DISCH DAY >30min CECY LANGLEY MD May 16, 2025 09:39
[2025-05-16] MEDS: OLANZapine 5 MG TAB PO SCH (15:24)
[2025-05-17] VITALS (7 sets, daily range): BP systolic 106–140; BP diastolic 56–68; PULSE 55–89; RESP 16–18; TEMP 97.2–98.2; O2SAT 95–98
[2025-05-17] MEDS: ACETAMINOPHEN 325 MG TAB PO PRN (12:16)
--- NOTE | 2025-05-17 12:17 | DVHPN2 ---
Reviewed: Care Plan, H&P, Labs, Medications, Previous Orders, Radiology Changes from previous H/P or p: No Changes General: Per HPI Eyes: No Pain, No Vision change, No Conjunctivae inflammation, No Eyelid inflammation, No Other, No Redness ENT: No Ear pain, No Ear discharge, No Nose pain, No Nose discharge, No Nose congestion, No Mouth pain, No Mouth swelling, No Throat pain, No Throat swelling, No Other Cardiovascular: No Chest Pain, No Palpitations, No Orthopnea, No Paroxysmal Noc. Dyspnea, No Edema, No Lt Headedness, No Other Respiratory: No Cough, No Dry, No Shortness of breath, No SOB with excertion, No Wheezing, No Hemoptysis, No Pleuritic Pain, No Sputum, No Other Gastrointestinal: No Nausea, No Vomiting, No Abdominal Pain, No Diarrhea, No Constipation, No Melena, No Hematochezia, No Other Genitourinary: No Dysuria, No Frequency, No Incontinence, No Hematuria, No Retention, No Other Musculoskeletal: No other, No neck pain, No shoulder pain, No arm pain, No back pain, No hand pain, No leg pain, No foot pain Skin: No Rash, No Lesions, No Jaundice, No Bruising, No Other Objective Vitals Vital Signs Date Time Temp Pulse Resp B/P (MAP) Pulse Ox O2 Delivery O2 Flow Rate FiO2 05/16/25 20:00 82 16 97 Room Air* 0 21 05/16/25 15:24 130/72 05/16/25 13:00 97.7 97.7 Intake/Output Intake and Output 05/17/25 07:00 Intake Total 1250 ml Balance 1250 ml Intake Oral 1250 ml # Voids 3 Exam GEN: Healthy appearing, well-developed, NAD. HEENT: NC/AT; MMM. CV: RRR, no m/r/g. LUNGS: CTAB, no w/r/c. ABD: Soft, NT/ND, NBS, no masses or organomegaly. EXT: skin Warm, well perfused. no rashes. No clubbing, cyanosis, or edema. NEURO: Ambulating with no limitations. No focal deficits. Psych: Tangential speech, delusional thoughts, possible auditory hallucination, alert oriented to self only. General Appearance: Alert, Oriented X3, Cooperative HEENT: Atraumatic Cardiovascular: Regular rate, Normal S1, Normal S2 Abdomen: Normal bowel sounds, Soft Medications Current Medications Medications Dose Ordered Sig/Heena Route Start Time Stop Time Status Last Admin Dose Admin Amlodipine Besylate 5 mg DAILY PO 05/11/25 10:00 05/16/25 15:24 5 MG Hydralazine HCl 10 mg Q6HP PRN IV 05/10/25 14:00 05/16/25 05:18 10 MG Atorvastatin Calcium 10 mg HS PO 05/10/25 22:00 05/16/25 22:34 10 MG Diagnostic Test (Pha) 1 strip ACHS 05/10/25 17:00 05/17/25 06:14 1 STRIP Insulin Human Regular HS SC 05/10/25 22:00 05/16/25 22:33 8 UNITS Insulin Human Regular AC SC 05/10/25 17:00 05/17/25 06:18 3 UNITS Dextrose 50 ml UD PRN IV 05/10/25 14:00 Sodium Chloride 10 ml Q8HR IV 05/10/25 14:00 05/17/25 06:14 10 ML Acetaminophen/ Hydrocodone Bitart 1 tab Q4HP PRN PO 05/10/25 14:00 05/10/25 18:24 1 TAB Ondansetron HCl 4 mg Q4HP PRN IV 05/10/25 14:00 05/11/25 09:54 4 MG Docusate Sodium 100 mg BIDPRN PRN PO 05/10/25 14:00 05/14/25 17:20 100 MG Acetaminophen 650 mg Q6HP PRN PO 05/10/25 14:00 Nitroglycerin 0.4 mg Q5MINP PRN SL 05/10/25 14:00 Morphine Sulfate 2 mg Q30M PRN IV 05/10/25 14:00 Alprazolam 0.5 mg Q8HPRN PRN PO 05/10/25 15:30 05/15/25 15:24 0.5 MG Haloperidol Lactate 5 mg Q6HP PRN IM 05/11/25 14:00 05/16/25 00:22 5 MG Olanzapine 5 mg BID PO 05/16/25 10:00 05/16/25 22:34 5 MG Laboratory Results Laboratory Tests 05/11/25 05:32 Urinalysis Test 05/10/25 09:55 Urine Color Light-yellow (Yellow) Urine Clarity Clear (Clear) Urine pH 5.5 (5.0-9.0) Urine Specific [place] 1.017 (1.001-1.035) Urine Protein Negative (Negative) Urine Ketones Negative (Negative) Urine Blood Negative /uL (Negative) Urine Nitrite Negative (Negative) Urine Bilirubin Negative (Negative) Urine Urobilinogen Normal mg/dL (Negative) Urine Leukocyte Esterase Trace /uL (Negative) Urine RBC 1 /hpf (0 - 4) Urine Microscopic WBC 2 /HPF (0-5) Urine Squamous Epithelial Cells Few /hpf (<5) Urine Bacteria None seen /hpf (None Seen) Urine Osmolality 452 mOsm/kg Urine Creatinine 60.46 mg/dL (30.0-125.0) Urine Protein/Creatinine Ratio 0.17 Urine Sodium 80 mmol/L (40-220) Urine Potassium 54 mmol/L (12-62) Urine Glucose Normal mg/dL (Normal) Urine Total Protein 10.3 mg/dL (1-14) Labs and/or images reviewed: Labs reviewed by me, Image(s) reviewed by me Assessment/Plan Assessment/Plan The patient is a 74 years old female with past medical history of anxiety, diabetes mellitus, hypertension, and hyperlipidemia who presented to [facility] ED for evaluation of altered mental status. As reported by EMS, patient called complaining of presyncopal episode, frequent falls, and slight chest pain. When EMS arrived on the scene, patient was pacing outside her house, locked the doors of her home with poor insight, thought process, hopelessness, paranoid, severe anxiety, and speaking mostly about babies being killed and stolen. Patient has rapid speech, talking about some female trying to steal her home, pulled out her master's degrees that stuffed in her socks, states she carries around as people are trying to steal it. 05/11: Pending psych eval. Start olanzapine 5 daily, Haldol 5 intramuscular q.6 for agitation. Sitter at bedside. Pending psych eval. Social consult for home safety eval and for identification. 05/12/2025: continue with current care, per psych, pt is on 5150 hold and not safe to be discharged, may need request to transfer to psych facility 05/14/2025: pt to be transferred to psych facility 05/15: waiting psych transfer 05/17: For transfer to psych facility. Discharge done yesterday. Remains Stable for transfer Diagnosis: acute encephalopathy, due to below acute psychosis likely, with auditory hallucinations delusional disorder, with acute psychotic episode possible delirium possible dementia possible history of anxiety, diabetes mellitus, hypertension, hyperlipidemia Plan: Olanzapine 5 mg Haldol 5 mg intramuscular q.6 PRN for agitation Psychiatry consult Hold off anxiolytics unless absolutely needed Amlodipine 5 Lipitor 10 Moderate sliding scale insulin a.c. HS Zofran PRN for nausea Tele Full code Plan discussed with: Patient My Orders Orders - CECY LANGLEY MD Procedure Category Date Status Time Transfer Orders XFER 05/17/25 Transmitted 12:04 Discontinue Tele THUY 05/17/25 In Process 12:04 Date of Service: May 17, 2025 Billing Provider: CECY LANGLEY MD Common Visit Codes: [id number] INP/OBS CARE(MOD) CECY LANGLEY MD May 17, 2025 12:17
--- NOTE | 2025-05-17 16:26 | DVHINCON2 ---
Date of Service if different f: May 17, 2025 Consultation (JARREAU) Labs Laboratory Tests Test 05/10/25 09:26 05/10/25 09:55 05/11/25 05:32 05/11/25 13:58 Creatine Kinase 199 U/L (34-145) Urine Color Light-yellow (Yellow) Urine Clarity Clear (Clear) Urine pH 5.5 (5.0-9.0) Urine Specific [place] 1.017 (1.001-1.035) Urine Protein Negative (Negative) Urine Ketones Negative (Negative) Urine Blood Negative /uL (Negative) Urine Nitrite Negative (Negative) Urine Bilirubin Negative (Negative) Urine Urobilinogen Normal mg/dL (Negative) Urine Leukocyte Esterase Trace /uL (Negative) Urine RBC 1 /hpf (0 - 4) Urine Microscopic WBC 2 /HPF (0-5) Urine Squamous Epithelial Cells Few /hpf (<5) Urine Bacteria None seen /hpf (None Seen) Urine Osmolality 452 mOsm/kg Urine Creatinine 60.46 mg/dL (30.0-125.0) Urine Protein/Creatinine Ratio 0.17 Urine Sodium 80 mmol/L (40-220) Urine Potassium 54 mmol/L (12-62) Urine Glucose Normal mg/dL (Normal) Urine Total Protein 10.3 mg/dL (1-14) Urine Opiates Screen Neg (NEGATIVE) Urine Fentanyl Screen Neg (NEGATIVE) Urine Barbiturates Screen Neg (NEGATIVE) Urine Phencyclidine Screen Neg (NEGATIVE) Urine Amphetamines Screen Neg (NEGATIVE) Urine Benzodiazepines Screen Neg (NEGATIVE) Urine Cocaine Screen Neg (NEGATIVE) Urine Cannabinoids Screen Neg (NEGATIVE) White Blood Count 7.5 10^3/uL (4.4-10.8) Red Blood Count 4.36 10^6/uL (4.0-5.20) Hemoglobin 13.9 g/dL (12.2-16.2) Hematocrit 41.1 % (36.0-46.0) Mean Corpuscular Volume 94.4 fL (80.0-100.0) Mean Corpuscular Hemoglobin 32.0 pg (28.0-32.0) Mean Corpuscular Hemoglobin Concent 33.9 g/dL (32.0-36.0) Red Cell Distribution Width 13.1 % (11.8-14.3) Platelet Count 243 10^3/uL (140-450) Mean Platelet Volume 7.4 fL (6.9-10.8) Neutrophils (%) (Auto) 90.3 % (37.0-80.0) Lymphocytes (%) (Auto) 4.9 % (10.0-50.0) Monocytes (%) (Auto) 4.6 % (0.0-12.0) Eosinophils (%) (Auto) 0.0 % (0.0-7.0) Basophils (%) (Auto) 0.2 % (0.0-2.0) Neutrophils # (Auto) 6.7 10 ^3/uL (1.6-8.6) Lymphocytes # (Auto) 0.4 10 ^3/uL (0.4-5.4) Monocytes # (Auto) 0.3 10 ^3/uL (0-1.3) Eosinophils # (Auto) 0 10 ^3/uL (0-0.8) Basophils # (Auto) 0 10 ^3/uL (0-0.2) Nucleated Red Blood Cells 0.0 % Sodium Level 141 mmol/L (136-145) Potassium Level 4.8 mmol/L (3.5-5.1) Chloride Level 102 mmol/L (98-107) Carbon Dioxide Level 27 mmol/L (20-31) Anion Gap 12 (5-15) Blood Urea Nitrogen 21 mg/dL (9-23) Creatinine 0.94 mg/dL (0.550-1.02) Glomerular Filtration Rate Calc 63 mL/min (>90) BUN/Creatinine Ratio 22.3 (10.0-20.0) Serum Glucose 196 mg/dL (74-106) Serum Osmolality 301 mOsm/kg (278-298) Calcium Level 10.4 mg/dL (8.7-10.4) Total Bilirubin 0.5 mg/dL (0.2-1.0) Aspartate Amino Transf (AST/SGOT) 23 U/L (13-40) Alanine Aminotransferase (ALT/SGPT) 16 U/L (7-40) Alkaline Phosphatase 51 U/L (46-116) Total Protein 7.1 g/dL (5.7-8.2) Albumin 4.5 g/dL (3.2-4.8) Ammonia < 10 umol/L (11-32) Thyroid Stimulating Hormone (TSH) 0.50 uIU/mL (0.55-4.78) Test 05/12/25 09:40 05/17/25 12:21 Hemoglobin A1c 7.7 % A1C (<5.7) Magnesium Level 1.4 mg/dL (1.6-2.6) Triglycerides Level 103 mg/dL (< 150) Cholesterol Level 162 mg/dL (< 200) LDL Cholesterol 55 mg/dL (< 100) HDL Cholesterol 77 mg/dL (40-59) Free Thyroxine (T4) Calculated 1.50 ng/dL (0.89-1.76) Free Triiodothyronine (T3) pg/mL 3.44 pg/mL (2.3-4.2) Bedside Glucose 257 mg/dl (70-106) Memory intact: Poor Vitals Vital Signs Date Time Temp Pulse Resp B/P (MAP) Pulse Ox O2 Delivery O2 Flow Rate FiO2 05/17/25 12:16 147/84 05/17/25 09:00 98.2 80 18 97 98.2 05/17/25 08:00 Room Air* 0 21 Current medications Current Medications Medications Dose Ordered Sig/Heena Route Start Time Stop Time Status Last Admin Dose Admin Amlodipine Besylate 5 mg DAILY PO 05/11/25 10:00 05/17/25 12:16 5 MG Hydralazine HCl 10 mg Q6HP PRN IV 05/10/25 14:00 05/16/25 05:18 10 MG Atorvastatin Calcium 10 mg HS PO 05/10/25 22:00 05/16/25 22:34 10 MG Diagnostic Test (Pha) 1 strip ACHS 05/10/25 17:00 05/17/25 12:18 1 STRIP Insulin Human Regular HS SC 05/10/25 22:00 05/16/25 22:33 8 UNITS Insulin Human Regular AC SC 05/10/25 17:00 05/17/25 13:55 9 UNITS Dextrose 50 ml UD PRN IV 05/10/25 14:00 Sodium Chloride 10 ml Q8HR IV 05/10/25 14:00 05/17/25 14:07 10 ML Acetaminophen/ Hydrocodone Bitart 1 tab Q4HP PRN PO 05/10/25 14:00 05/10/25 18:24 1 TAB Ondansetron HCl 4 mg Q4HP PRN IV 05/10/25 14:00 05/11/25 09:54 4 MG Docusate Sodium 100 mg BIDPRN PRN PO 05/10/25 14:00 05/14/25 17:20 100 MG Acetaminophen 650 mg Q6HP PRN PO 05/10/25 14:00 05/17/25 12:16 650 MG Nitroglycerin 0.4 mg Q5MINP PRN SL 05/10/25 14:00 Morphine Sulfate 2 mg Q30M PRN IV 05/10/25 14:00 Alprazolam 0.5 mg Q8HPRN PRN PO 05/10/25 15:30 05/17/25 12:16 0.5 MG Haloperidol Lactate 5 mg Q6HP PRN IM 05/11/25 14:00 05/16/25 00:22 5 MG Olanzapine 5 mg BID PO 05/16/25 10:00 05/17/25 12:16 5 MG History of Present Illness Reason for Consult : follow up and re-evaluation of 515hold HPI : This is a 74-year-old female BIB ambulance for altered mental status on 05/10/25, patient had initial telepsychiatry evaluation on 05/11. This law writer attempted to talk with patient today for re-evaluation, but she was too drowsy after receiving Xanax earlier. Per staff, she remains altered, and continues exhibit psychotic symptoms of paranoia and responding to unseen stimuli. Patient remains without a viable self-care plan. It was reported that she was living with daughter but unable to provide her phone number or address. Also daughter has not called or visited. Plan : Recommend to continue 1:1 sitter for safety Continue 5150hold for GD and transfer to inpatient psychiatric facility for treatment and stabilization Continue Zyprexa 5mg po Bid for psychosis and agitation FIOR MCDONALD DNP May 17, 2025 16:26
[2025-05-18 01:00] VITALS: BP 146/71; PULSE 54; RESP 18; TEMP 97.4; O2SAT 95
--- NOTE | 2025-05-18 10:54 | ECG ---
[facility] Test Date: 2025-05-17 Test Time: 16:30:00 Pat Name: SAM MCNULTY Department: Room: 0221T B Gender: F Process Control Engineer: MALACHI : [id number] Requested By: CECY ESPITIA Order Number: [id number] Reading MD: Ever Jacobsen Measurements Intervals [place] Rate: 85 P: -14 [place]: 159 QRS: -67 QRSD: 101 T: 89 QT: 374 QTc: 445 Interpretive Statements Sinus rhythm Left anterior fascicular block Probable left ventricular hypertrophy Anterior Q waves, possibly due to LVH Nonspecific T abnormalities, lateral leads ST elevation, consider inferior injury Electronically Signed On 05-18-2025 18:29:25 PST by Ever Jacobsen Please click the below link to view image of tracing.
== END 2025-05-18 01:00 | DRG 92 ==
LOC: EDBD 08:48 → ER 08:48 → OVERFLOW 13:55 → TELE-CENTR 21:46
PROVIDERS: ADMIT Student in an Organized Health Care Education/Training Program; ATTEND Student in an Organized Health Care Education/Training Program
DX: G92.8 Other toxic encephalopathy (principal); F03.92 Unspecified dementia, unspecified severity, with psychotic disturbance; N17.9 Acute kidney failure, unspecified; F23 Brief psychotic disorder; E11.22 Type 2 diabetes mellitus with diabetic chronic kidney disease; I12.9 Hypertensive chronic kidney disease with stage 1 through stage 4 chronic kidney disease, or unspecified chronic kidney disease; E87.5 Hyperkalemia; I16.0 Hypertensive urgency; E78.5 Hyperlipidemia, unspecified; N18.2 Chronic kidney disease, stage 2 (mild); E83.42 Hypomagnesemia; I25.2 Old myocardial infarction; F41.9 Anxiety disorder, unspecified; I48.91 Unspecified atrial fibrillation; Z82.49 Family history of ischemic heart disease and other diseases of the circulatory system; Z79.899 Other long term (current) drug therapy
CPT/HCPCS: 36415; 70450; 80048; 80053; 80061; 80307; 81001; 82140; 82550; 82570; 82962; 83036; 83735; 83930; 83935; 84132; 84133; 84156; 84300; 84439; 84443; 84481; 85025; 93005; 93306; 94640; 96374; 96375; 99291; 99292; G0378; J1815; J2405